=== PATIENT | female | born 1965 | race African-American/Black ===

== ENCOUNTER 2017-03-22 09:11 | Emergency (ER) | payer MEDICARE, OTHER ==
[2017-03-22 09:17] VITALS: BP 141/108; PULSE 99; RESP 20; TEMP 97.8
--- NOTE | 2017-03-22 09:29 | ED ---
General Adult HPI - General Chief complaint: Extremity Injury, Upper Stated complaint: LEFT SHOULDER PAIN Time Seen by Provider: 03/22/17 09:18 Source: patient, RN notes reviewed Mode of arrival: ambulatory Limitations: no limitations - History of Present Illness Initial comments: Patient is a 51 year old female who presents to the ER today with chief complaint of injury to the left shoulder after a trip and fall that occurred just prior to arrival. Patient does admit to pain locally to the left shoulder that is worse with movements. Denies any head injury or loss conscious. Patient denies any other injury or complaint at this time. Patient denies any recent fever, chills, shortness of breath, chest pain, back pain, abdominal pain , nausea or vomiting, numbness or tingling, dysuria or hematuria, constipation or diarrhea, headaches or visual changes, or any other complaints. - Related Data Previous Rx's Medication Instructions Recorded Ibuprofen [Motrin] 600 mg PO Q6HR PRN #30 day 03/22/17 Allergies Allergy/AdvReac Type Severity Reaction Status Date / Time No Known Allergies Allergy Verified 03/22/17 09:17 Review of Systems ROS Statement: Those systems with pertinent positive or pertinent negative responses have been documented in the HPI. ROS Other: All systems not noted in ROS Statement are negative. Past Medical History Past Medical History: No Reported History History of Any Multi-Drug Resistant Organisms: None Reported Past Surgical History: No Surgical Hx Reported Past Psychological History: Anxiety, Depression Smoking Status: Current every day smoker Past Alcohol Use History: Occasional Past Drug Use History: None Reported General Exam - General Exam Comments Initial Comments: General: The patient is awake and alert, in no distress, and does not appear acutely ill. Neck: The neck is supple, there is no tenderness or JVD. Cardiovascular: There is a regular rate and rhythm. No murmur, rub or gallop is appreciated. Respiratory: Lungs are clear to auscultation, respirations are non-labored, breath sounds are equal. No wheezes, stridor, rales, or rhonchi. Musculoskeletal: Patient does have normal appearance of the left shoulder obvious deformity. She shows limited range of motion with extension and abduction at the left shoulder. Able to fully move left elbow and wrist. No tenderness to cervical spine. No step-offs deformities. She does have tenderness over the superior and anterior aspects of the left shoulder on palpation. No other bony tenderness. Pulses are equal bilaterally 2+. Sensations are intact. Neurological: A&O x 3. CN II-XII intact, There are no obvious motor or sensory deficits. Coordination appears grossly intact. Speech is normal. Skin: Skin is warm and dry and no rashes or lesions are noted. Psychiatric: Normal mood and affect. Limitations: no limitations Course Vital Signs 03/22/17 09:13 Temperature 97.8 F Pulse Rate 99 Respiratory 20 Rate Blood Pressure 141/108 O2 Sat by Pulse 99 Oximetry Medical Decision Making - Medical Decision Making X-ray reviewed is negative for any acute fracture dislocation. Results were discussed with patient. She is resting comfortably in the stretcher. Will be started on anti-inflammatories. Advised to follow-up with orthopedics over the next week if symptoms persist for further evaluation. Disposition Clinical Impression: Shoulder contusion Disposition: HOME SELF-CARE Condition: Good Instructions: Shoulder Sprain (ED) Additional Instructions: Please use ice to the affected area at least 4 times a day for 20 minutes at a time. Please use ibuprofen for pain as prescribed. Please follow-up with orthopedics over the next 7/10 days if symptoms persist. Please return to emergency room for any other concerns. Prescriptions: Ibuprofen [Motrin] 600 mg PO Q6HR PRN #30 day PRN Reason: Pain Referrals: Basia Cárdenas MD [Primary Care Provider] - 1-2 days Carmelo Damon MD [STAFF PHYSICIAN] - 1-2 days Time of Disposition: 10:18
--- NOTE | 2017-03-22 09:59 | XR ---
Left shoulder HISTORY: Pain 3 views of the left shoulder Bone mineralization, joint spaces and alignment are maintained. Left lung apex as visualized is sanjay l. IMPRESSION: No significant abnormalities evident.
[2017-03-22] MEDS ORDERED: IBUPROFEN 600 MG STARTER PACK 4 TAB BTL PO STA (10:19)
== END 2017-03-22 10:28 | disposition home or self-care (01) ==
LOC: EC 09:11
DX: S40.012A Contusion of left shoulder, initial encounter (principal); F17.200 Nicotine dependence, unspecified, uncomplicated; W01.0XXA Fall on same level from slipping, tripping and stumbling without subsequent striking against object, initial encounter
CPT/HCPCS: 99283

== ENCOUNTER 2018-09-12 01:30 | Emergency (ER) | payer MEDICARE, OTHER ==
[2018-09-12] MEDS ORDERED: KETOROLAC 30 MG/ML 1 ML VIAL IM STA (04:06)
[2018-09-12] MEDS ORDERED: CYCLOBENZAPRINE 10MG STARTER 3 TAB BTL PO STA (04:07)
--- NOTE | 2018-09-12 04:08 | ED ---
Recheck HPI - General Chief Complaint: Recheck/Abnormal Lab/Rx Stated Complaint: Needs pain meds Time Seen by Provider: 09/12/18 03:24 Source: patient, RN notes reviewed, old records reviewed Mode of arrival: ambulatory Limitations: no limitations - History of Present Illness Initial Comments: 53 year old female, recently DC from shelter. Patient states she has diffuse joint aches, and motrin will not help with her pain.She requests pain medications. Patient has no fever, or chills. She has no other symptoms. She states that she has a history of arthritis. - Related Data Previous Rx's Medication Instructions Recorded Cyclobenzaprine [Flexeril] 10 mg PO TID #12 tab 09/12/18 Ibuprofen 600 mg PO TID #30 tablet 09/12/18 Allergies Allergy/AdvReac Type Severity Reaction Status Date / Time No Known Allergies Allergy Verified 09/12/18 01:40 Review of Systems ROS Statement: Those systems with pertinent positive or pertinent negative responses have been documented in the HPI. ROS Other: All systems not noted in ROS Statement are negative. Past Medical History Past Medical History: No Reported History History of Any Multi-Drug Resistant Organisms: None Reported Past Surgical History: No Surgical Hx Reported Past Psychological History: Anxiety, Depression Smoking Status: Current every day smoker Past Alcohol Use History: Occasional Past Drug Use History: None Reported General Exam - General Exam Comments Initial Comments: 53 year old female, no distress. Limitations: no limitations General appearance: alert, in no apparent distress Head exam: Present: atraumatic, normocephalic, normal inspection Eye exam: Present: normal appearance, PERRL, EOMI. Absent: scleral icterus, conjunctival injection, periorbital swelling ENT exam: Present: normal exam, mucous membranes moist Neck exam: Present: normal inspection. Absent: tenderness, meningismus, lymphadenopathy Respiratory exam: Present: normal lung sounds bilaterally. Absent: respiratory distress, wheezes, rales, rhonchi, stridor Cardiovascular Exam: Present: regular rate, normal rhythm, normal heart sounds. Absent: systolic murmur, diastolic murmur, rubs, gallop, clicks GI/Abdominal exam: Present: soft, normal bowel sounds. Absent: distended, tenderness, guarding, rebound, rigid Neurological exam: Present: alert, oriented X3, CN II-XII intact Psychiatric exam: Present: normal affect, normal mood Skin exam: Present: warm, dry, intact, normal color. Absent: rash Course Vital Signs 09/12/18 09/12/18 01:36 04:34 Temperature 97.8 F 98.2 F Pulse Rate 92 68 Respiratory 20 18 Rate Blood Pressure 161/90 143/78 O2 Sat by Pulse 100 98 Oximetry Medical Decision Making - Medical Decision Making 53 year old female presents today with CC of joint pain. Patient has full ROM of extremities. Patient has symptoms after being DC from shelter last week, and states that being shelter was hard on her body. She was given IM toradol. Patient will be discharged with close follow up from PCP. Disposition Clinical Impression: Joint pain Disposition: HOME SELF-CARE Condition: Good Instructions (If sedation given, give patient instructions): Musculoskeletal Pain (ED) Additional Instructions: Follow Up with her primary care physician. Take anti-inflammatory medicine as prescribed. Return to emergency department if any alarming signs or symptoms occur. Prescriptions: Cyclobenzaprine [Flexeril] 10 mg PO TID #12 tab Ibuprofen 600 mg PO TID #30 tablet Is patient prescribed a controlled substance at d/c from ED?: No Referrals: Basia Cárdenas MD [Primary Care Provider] - 1-2 days Time of Disposition: 04:06
[2018-09-12 04:36] VITALS: BP 143/78; PULSE 68; RESP 18; TEMP 98.2
== END 2018-09-12 04:35 | disposition home or self-care (01) ==
LOC: EC 01:30
DX: M25.50 Pain in unspecified joint (principal); F17.200 Nicotine dependence, unspecified, uncomplicated
CPT/HCPCS: 99282; 96372; J1885

== ENCOUNTER 2018-12-23 16:25 | Emergency (ER) | payer MEDICARE, OTHER ==
--- NOTE | 2018-12-23 18:07 | ED ---
General Adult HPI - General Chief complaint: Psychiatric Symptoms Stated complaint: EPS eval Time Seen by Provider: 12/23/18 16:42 Source: patient, RN notes reviewed Mode of arrival: ambulatory Limitations: no limitations - History of Present Illness Initial comments: Patient is a pleasant 53-year-old female presenting to the emergency Department with depression. Symptoms have been occurring over the past week. Patient is tearful. Patient denies suicidal ideation and requests discharge. Patient states she only told the nurse that she had suicidal thoughts in order to be able to get in to the emergency department. Patient denies homicidal thoughts. No hallucinations. Patient states she does drink heavier than normal person however does not drink daily. Patient denies street drug use. No history of previous suicide attempt. - Related Data Home Medications Medication Instructions Recorded Confirmed Benztropine Mesylate [Cogentin] 2 mg PO BID 12/23/18 12/23/18 Multivitamins, Thera [Multivitamin 1 tab PO DAILY 12/23/18 12/23/18 (formulary)] Paliperidone IM [Invega Sustenna] 234 mg IM Q28D 12/23/18 12/23/18 Allergies Allergy/AdvReac Type Severity Reaction Status Date / Time No Known Allergies Allergy Verified 12/23/18 16:58 Review of Systems ROS Statement: Those systems with pertinent positive or pertinent negative responses have been documented in the HPI. ROS Other: All systems not noted in ROS Statement are negative. Constitutional: Denies: fever Eyes: Denies: eye pain ENT: Denies: ear pain Respiratory: Denies: cough Cardiovascular: Denies: chest pain Endocrine: Denies: fatigue Gastrointestinal: Denies: abdominal pain Genitourinary: Denies: dysuria Musculoskeletal: Denies: back pain Skin: Denies: rash Psychiatric: Reports: depression. Denies: auditory hallucinations, visual hallucinations, homicidal thoughts Past Medical History Past Medical History: No Reported History History of Any Multi-Drug Resistant Organisms: None Reported Past Surgical History: No Surgical Hx Reported Past Psychological History: Anxiety, Depression Smoking Status: Current every day smoker Past Alcohol Use History: Occasional Past Drug Use History: None Reported General Exam Limitations: no limitations General appearance: alert, in no apparent distress Head exam: Present: atraumatic Eye exam: Present: normal appearance Neck exam: Present: normal inspection Respiratory exam: Present: normal lung sounds bilaterally Cardiovascular Exam: Present: regular rate, normal rhythm GI/Abdominal exam: Present: soft. Absent: tenderness Extremities exam: Present: normal inspection Neurological exam: Present: alert Psychiatric exam: Present: normal affect, normal mood Skin exam: Present: normal color Course Vital Signs 12/23/18 12/23/18 16:39 19:00 Temperature 98.5 F Pulse Rate 112 H 98 Respiratory 18 20 Rate Blood Pressure 133/79 128/56 O2 Sat by Pulse 98 99 Oximetry Medical Decision Making - Medical Decision Making Patient was seen by mental health services who recommends discharge. Follow-up appointment was set up with [facility]. Disposition Clinical Impression: Depression Disposition: HOME SELF-CARE Condition: Stable Instructions (If sedation given, give patient instructions): Depression (ED) Additional Instructions: Please follow-up with primary care physician in the next day or 2 for recheck. Please also follow-up with [facility] as directed. Return for thoughts of self-harm, worsening symptoms or other concerns. Is patient prescribed a controlled substance at d/c from ED?: No Referrals: Basia Cárdenas MD [Primary Care Provider] - 1-2 days Time of Disposition: 19:44
[2018-12-23 19:43] LABS: Amphetamine Screen,Urine Not Detected (NotDetected); Barbiturate Screen,Urine Not Detected (NotDetected); Benzodiazepines Screen,Urine Not Detected (NotDetected); Cocaine Screen,Urine Detected (NotDetected); Methadone Screen, Urine Not Detected (NotDetected); Opiate Screen,Urine Not Detected (NotDetected); Oxycodone Screen, Urine Not Detected (NotDetected); Phencyclidine Screen,Urine Not Detected (NotDetected); Tricyclic Antidepressant,Urine Not Detected (NotDetected); Urn Cannabinoid Scrn Not Detected (NotDetected)
[2018-12-23 20:15] VITALS: BP 131/65; PULSE 73; RESP 18; TEMP 98.3
== END 2018-12-23 20:10 | disposition home or self-care (01) ==
LOC: EC 16:25
DX: F32.9 Major depressive disorder, single episode, unspecified (principal); F41.9 Anxiety disorder, unspecified; F17.200 Nicotine dependence, unspecified, uncomplicated; Z79.899 Other long term (current) drug therapy
CPT/HCPCS: 80306; 82075; 99284

== ENCOUNTER 2019-01-16 21:22 | Emergency (ER) | payer MEDICARE, OTHER ==
[2019-01-16 21:25] VITALS: TEMP 98.6
[2019-01-16] MEDS ORDERED: SODIUM CHLORIDE 0.9% 500 ML 500 ML IV STA (21:30)
[2019-01-16] MEDS ORDERED: HYDROmorphone 0.5 MG/0.5 ML SYRINGE IVP STA (21:30)
[2019-01-16] MEDS ORDERED: ONDANSETRON 4 MG/2 ML VIAL IVP STA (21:30)
[2019-01-16] MEDS ORDERED: SODIUM CHLORIDE 0.9% 1,000 ML IV STA (21:30)
--- NOTE | 2019-01-16 21:35 | ED ---
Abdominal Pain HPI - General Chief Complaint: Abdominal Pain Stated Complaint: Side pain Time Seen by Provider: 01/16/19 21:26 Source: patient, family, RN notes reviewed Mode of arrival: ambulatory Limitations: no limitations - History of Present Illness Initial Comments: 53-year-old female presents emergency Department chief complaint of right-sided abdominal pain. Patient states started yesterday. Patient states that nothing makes the pain feel better or worse at this time. Patient states she's had no prior abdominal surgeries. Denies any dysuria, hematuria, urinary frequency, diarrhea constipation. Patient had no nausea vomiting. Patient denies any current chest pain or shortness of breath. She states it is worse when you press on her abdomen. Patient is not taking any medications currently and denies taking anything for this pain. - Related Data Home Medications Medication Instructions Recorded Confirmed Benztropine Mesylate [Cogentin] 2 mg PO BID 12/23/18 12/23/18 Multivitamins, Thera [Multivitamin 1 tab PO DAILY 12/23/18 12/23/18 (formulary)] Paliperidone IM [Invega Sustenna] 234 mg IM Q28D 12/23/18 12/23/18 Previous Rx's Medication Instructions Recorded Cephalexin [Keflex] 500 mg PO Q6HR #28 cap 01/16/19 Allergies Allergy/AdvReac Type Severity Reaction Status Date / Time No Known Allergies Allergy Verified 01/16/19 21:25 Review of Systems ROS Statement: Those systems with pertinent positive or pertinent negative responses have been documented in the HPI. ROS Other: All systems not noted in ROS Statement are negative. Past Medical History Past Medical History: No Reported History History of Any Multi-Drug Resistant Organisms: None Reported Past Surgical History: No Surgical Hx Reported Past Psychological History: Anxiety, Depression Smoking Status: Current every day smoker Past Alcohol Use History: Occasional Past Drug Use History: None Reported General Exam Limitations: no limitations General appearance: alert, in no apparent distress Head exam: Present: atraumatic, normocephalic, normal inspection Eye exam: Present: normal appearance, PERRL, EOMI. Absent: scleral icterus, conjunctival injection, periorbital swelling ENT exam: Present: normal exam, mucous membranes moist, TM's normal bilaterally Neck exam: Present: normal inspection. Absent: tenderness, meningismus, lymphadenopathy Respiratory exam: Present: normal lung sounds bilaterally. Absent: respiratory distress, wheezes, rales, rhonchi, stridor Cardiovascular Exam: Present: normal rhythm, tachycardia, normal heart sounds. Absent: systolic murmur, diastolic murmur, rubs, gallop, clicks GI/Abdominal exam: Present: soft, tenderness (Moderate right upper quadrant tenderness with diffuse mild), normal bowel sounds. Absent: distended, guarding, rebound, rigid Back exam: Absent: CVA tenderness (R), CVA tenderness (L) Skin exam: Present: warm, dry, intact, normal color. Absent: rash Course Vital Signs 01/16/19 21:23 Temperature 98.6 F Pulse Rate 115 H Respiratory 20 Rate Blood Pressure 143/93 O2 Sat by Pulse 97 Oximetry Medical Decision Making - Medical Decision Making 53-year-old female presented for abdominal pain and right flank pain. Patient had labs urinalysis and CT CT is any evidence of obstructive stone or signs of infection this time. Patient does have urinary tract infection will be given Rocephin discharged on antibiotics. Return parameters were discussed. Patient agrees to plan. - Lab Data Result diagrams: 01/16/19 21:42 01/16/19 21:42 Lab Results 01/16/19 01/16/19 01/16/19 Range/Units 21:42 21:42 21:42 WBC 12.7 H (3.8-10.6) k/uL RBC 4.83 (3.80-5.40) m/uL Hgb 14.2 (11.4-16.0) gm/dL Hct 42.7 (34.0-46.0) % MCV 88.3 (80.0-100.0) fL MCH 29.4 (25.0-35.0) pg MCHC 33.2 (31.0-37.0) g/dL RDW 14.3 (11.5-15.5) % Plt Count 208 (150-450) k/uL Neutrophils % 80 % Lymphocytes % 14 % Monocytes % 4 % Eosinophils % 1 % Basophils % 0 % Neutrophils # 10.2 H (1.3-7.7) k/uL Lymphocytes # 1.8 (1.0-4.8) k/uL Monocytes # 0.5 (0-1.0) k/uL Eosinophils # 0.1 (0-0.7) k/uL Basophils # 0.0 (0-0.2) k/uL Sodium 139 (137-145) mmol/L Potassium 4.0 (3.5-5.1) mmol/L Chloride 103 (98-107) mmol/L Carbon Dioxide 26 (22-30) mmol/L Anion Gap 10 mmol/L BUN 10 (7-17) mg/dL Creatinine 0.77 (0.52-1.04) mg/dL Est GFR (CKD-EPI)AfAm >90 (>60 ml/min/1.73 sqM) Est GFR (CKD-EPI)NonAf 88 (>60 ml/min/1.73 sqM) Glucose 97 (74-99) mg/dL Plasma Lactic Acid Kendall 1.2 (0.7-2.0) mmol/L Calcium 9.4 (8.4-10.2) mg/dL Total Bilirubin 0.5 (0.2-1.3) mg/dL AST 18 (14-36) U/L ALT 9 (9-52) U/L Alkaline Phosphatase 73 (38-126) U/L Total Protein 6.9 (6.3-8.2) g/dL Albumin 3.9 (3.5-5.0) g/dL Amylase 31 (30-110) U/L Lipase 29 (23-300) U/L Urine Color Urine Appearance (Clear) Urine pH (5.0-8.0) Ur Specific [place] (1.001-1.035) Urine Protein (Negative) Urine Glucose (UA) (Negative) Urine Ketones (Negative) Urine Blood (Negative) Urine Nitrite (Negative) Urine Bilirubin (Negative) Urine Urobilinogen (<2.0) mg/dL Ur Leukocyte Esterase (Negative) Urine RBC (0-5) /hpf Urine WBC (0-5) /hpf Ur Squamous Epith Cells (0-4) /hpf Urine Bacteria (None) /hpf Urine Mucus (None) /hpf Urine Yeast (Budding) (None) /hpf 01/16/19 Range/Units 22:20 WBC (3.8-10.6) k/uL RBC (3.80-5.40) m/uL Hgb (11.4-16.0) gm/dL Hct (34.0-46.0) % MCV (80.0-100.0) fL MCH (25.0-35.0) pg MCHC (31.0-37.0) g/dL RDW (11.5-15.5) % Plt Count (150-450) k/uL Neutrophils % % Lymphocytes % % Monocytes % % Eosinophils % % Basophils % % Neutrophils # (1.3-7.7) k/uL Lymphocytes # (1.0-4.8) k/uL Monocytes # (0-1.0) k/uL Eosinophils # (0-0.7) k/uL Basophils # (0-0.2) k/uL Sodium (137-145) mmol/L Potassium (3.5-5.1) mmol/L Chloride (98-107) mmol/L Carbon Dioxide (22-30) mmol/L Anion Gap mmol/L BUN (7-17) mg/dL Creatinine (0.52-1.04) mg/dL Est GFR (CKD-EPI)AfAm (>60 ml/min/1.73 sqM) Est GFR (CKD-EPI)NonAf (>60 ml/min/1.73 sqM) Glucose (74-99) mg/dL Plasma Lactic Acid Kendall (0.7-2.0) mmol/L Calcium (8.4-10.2) mg/dL Total Bilirubin (0.2-1.3) mg/dL AST (14-36) U/L ALT (9-52) U/L Alkaline Phosphatase (38-126) U/L Total Protein (6.3-8.2) g/dL Albumin (3.5-5.0) g/dL Amylase (30-110) U/L Lipase (23-300) U/L Urine Color Yellow Urine Appearance Cloudy H (Clear) Urine pH 6.0 (5.0-8.0) Ur Specific [place] >1.050 H (1.001-1.035) Urine Protein Trace H (Negative) Urine Glucose (UA) Negative (Negative) Urine Ketones 2+ H (Negative) Urine Blood Small H (Negative) Urine Nitrite Negative (Negative) Urine Bilirubin Negative (Negative) Urine Urobilinogen 2.0 (<2.0) mg/dL Ur Leukocyte Esterase Large H (Negative) Urine RBC 10 H (0-5) /hpf Urine WBC 18 H (0-5) /hpf Ur Squamous Epith Cells 8 H (0-4) /hpf Urine Bacteria Rare H (None) /hpf Urine Mucus Rare H (None) /hpf Urine Yeast (Budding) Moderate H (None) /hpf Disposition Clinical Impression: Abdominal pain, UTI (urinary tract infection) Disposition: HOME SELF-CARE Condition: Stable Instructions (If sedation given, give patient instructions): Abdominal Pain (ED) Additional Instructions: Please return to the Emergency Department if symptoms worsen or any other concerns. Prescriptions: Cephalexin [Keflex] 500 mg PO Q6HR #28 cap Is patient prescribed a controlled substance at d/c from ED?: No Referrals: Basia Cárdenas MD [Primary Care Provider] - 1-2 days Time of Disposition: 23:02
[2019-01-16 21:54] LABS: Basophils % (A) 0 %; Eosinophils # (A) 0.1 k/uL (0-0.7); Eosinophils % (A) 1 %; HCT 42.7 % (34.0-46.0); HGB 14.2 gm/dL (11.4-16.0); Lymphocytes # (A) 1.8 k/uL (1.0-4.8); Lymphocytes % (A) 14 %; MCH 29.4 pg (25.0-35.0); MCHC 33.2 g/dL (31.0-37.0); MCV 88.3 fL (80.0-100.0); Mean Platelet Volume 8.4; Monocytes # (A) 0.5 k/uL (0-1.0); Monocytes % (A) 4 %; Neutrophils # (A) 10.2 k/uL (1.3-7.7); Neutrophils % (A) 80 %; Platelet Count 208 k/uL (150-450); RBC 4.83 m/uL (3.80-5.40); RDW 14.3 % (11.5-15.5); WBC 12.7 k/uL (3.8-10.6)
[2019-01-16 22:05] LABS: ALT 9 U/L (9-52); AST 18 U/L (14-36); Albumin 3.9 g/dL (3.5-5.0); Alkaline Phosphatase 73 U/L (38-126); Amylase 31 U/L (30-110); Blood Urea Nitrogen 10 mg/dL (7-17); Calcium 9.4 mg/dL (8.4-10.2); Carbon Dioxide 26 mmol/L (22-30); Chloride 103 mmol/L (98-107); Glucose 97 mg/dL (74-99); Lipase 29 U/L (23-300); Total Bilirubin 0.5 mg/dL (0.2-1.3); Total Protein 6.9 g/dL (6.3-8.2)
[2019-01-16 22:13] LABS: Anion Gap 10 mmol/L; Sodium 139 mmol/L (137-145)
[2019-01-16 22:44] LABS: Appearance,Urine Cloudy (Clear); Bacteria,Urine Rare /hpf; Bilirubin,Urine Negative (Negative); Blood,Urine Small (Negative); Budding Yeast,Urine Moderate /hpf; Color,Urine Yellow; Glucose,Urine (UA) Negative (Negative); Ketones,Urine 2+ (Negative); Leukocyte Esterase,Urine Large (Negative); Mucus,Urine Rare /hpf; Nitrite,Urine Negative (Negative); Protein,Urine Trace (Negative); RBC,Urine 10 /hpf (0-5); Squamous Epithelial Cell,Urine 8 /hpf (0-4)
[2019-01-16 22:45] LABS: Specific Gravity,Urine >1.050 (1.001-1.035)
--- NOTE | 2019-01-16 22:51 | CT ---
EXAM: CT Abdomen and Pelvis With Intravenous Contrast CLINICAL HISTORY: ITS.REASON CT Reason: abdominal pain TECHNIQUE: Axial computed tomography images of the abdomen and pelvis with intravenous contrast. CTDI is 16.5 mGy and DLP is 659.90 mGy-cm. This CT exam was performed using one or more of the following dose reduction techniques: automated exposure control, adjustment of the mA and/or kV according to patient size, and/or use of iterative reconstruction technique. COMPARISON: No relevant prior studies available. FINDINGS: Lung bases: Subsegmental atelectasis at the posterior aspect of the right lower lobe. ABDOMEN: Liver: Unremarkable. No mass. Gallbladder and bile ducts: See below. Pancreas: Pancreas and gallbladder are unremarkable. No ductal dilation. Spleen: Unremarkable. No splenomegaly. Adrenals: Unremarkable. No mass. Kidneys and ureters: Right and left renal calyceal calculi at approximately the interpolar level, larger on the left side where the calculus measures 6 mm. No obstructive uropathy. Stomach and bowel: Unremarkable. No obstruction. No mucosal thickening. PELVIS: Appendix: No findings to suggest acute appendicitis. Bladder: Unremarkable. No mass. Reproductive: Unremarkable as visualized. ABDOMEN and PELVIS: Intraperitoneal space: No free air or free fluid. No adnexal masses. Bones/joints: No acute fracture. No dislocation. Soft tissues: Unremarkable. Vasculature: Unremarkable. No abdominal aortic aneurysm. Lymph nodes: Unremarkable. No enlarged lymph nodes. IMPRESSION: Nonobstructing bilateral renal calyceal calculi. No other acute or inflammatory disease.
[2019-01-16] MEDS ORDERED: cefTRIAXone IN SWFI 1,000 MG/10 ML SYRINGE IVP STA (22:59)
[2019-01-16] MEDS ORDERED: ACET/COD 300 MG/30 MG STARTER PACK 6 TAB BTL PO STA (23:00)
[2019-01-16 23:19] VITALS: BP 133/86; PULSE 100; RESP 18
== END 2019-01-16 23:19 | disposition home or self-care (01) ==
LOC: EC 21:22
DX: N39.0 Urinary tract infection, site not specified (principal); F17.200 Nicotine dependence, unspecified, uncomplicated; Z79.899 Other long term (current) drug therapy
CPT/HCPCS: 99284; 96374; 96375 ×2; 96361; 36415; 80053; 82150; 83605; 83690; 85025; 81001; 87086; 74177; J2405; J0696; J1170; Q9967

== ENCOUNTER → 2020-06-06 | Day surgery (SDC) | payer MEDICARE, OTHER ==
[2020-06-01 15:33] VITALS: BMI 32.5
[~2020-06-06] MED LIST: LACTATED RINGERS 1,000 ML IV SCH; LIDOCAINE 1% (10MG/ML) FOR IV START INTRADERMA PRN; MIDAZOLAM 2 MG/2 ML VIAL IV PRN
== END ==
LOC: ORWHC2ENDO 08:04
PROVIDERS: ATTEND Surgery
DX: Z53.9 Procedure and treatment not carried out, unspecified reason (principal)

== ENCOUNTER → 2020-06-20 | Outpatient (CLI) | payer MEDICARE, OTHER ==
--- NOTE | 2020-06-21 11:58 | MM ---
Reason for exam: screening (asymptomatic). Last mammogram was performed 4 years ago. History: Family history of breast cancer in sister at age 50 and breast cancer in cousin at age 55. Excisional biopsy of the left breast. Physical Findings: A clinical breast exam by your physician is recommended on an annual basis and results should be correlated with mammographic findings. MG 3D Screening Mammo W/Cad Bilateral CC and MLO view(s) were taken. Prior study comparison: June 12, 2016, bilateral MG screening mammo w CAD. July 06, 2015, bilateral MG screening mammo w CAD. The breast tissue is heterogeneously dense. This may lower the sensitivity of mammography. There is chronic nodularity in the left breast. There is no discrete abnormality. ASSESSMENT: Negative, BI-RAD 1 RECOMMENDATION: Routine screening mammogram of both breasts in 1 year.
== END | disposition home or self-care (01) ==
LOC: RADMAMWWP 09:41
PROVIDERS: ATTEND Family Medicine
DX: Z12.31 Encounter for screening mammogram for malignant neoplasm of breast (principal)
CPT/HCPCS: 77063; 77067

== ENCOUNTER → 2020-08-08 | Day surgery (SDC) | payer MEDICARE, OTHER ==
[2020-08-07 12:45] VITALS: BMI 41.1
[~2020-08-08] MED LIST changes: +LACTATED RINGERS 1,000 ML IV ONE; -LACTATED RINGERS 1,000 ML IV SCH; -LIDOCAINE 1% (10MG/ML) FOR IV START INTRADERMA PRN; -MIDAZOLAM 2 MG/2 ML VIAL IV PRN; +ONDANSETRON 4 MG/2 ML VIAL IVP ONE; +ONDANSETRON 4 MG/2 ML VIAL ONE; +PROPOFOL 10 MG/ML 20 ML VIAL IV ONE
--- NOTE | 2020-08-08 08:28 | P.GSHP ---
History of Present Illness H&P Date: 08/08/20 Chief Complaint: Colon cancer screening 55-year-old female here today for evaluation of colon cancer screening. She has not had a colonoscopy previously. No bowel complaints. No family history of colon cancer. Past Medical History Past Medical History: Hyperlipidemia, Hypertension, Osteoarthritis (OA) History of Any Multi-Drug Resistant Organisms: None Reported Past Surgical History: Breast Surgery, Section Additional Past Surgical History / Comment(s): Lump exc Lt breast Past Anesthesia/Blood Transfusion Reactions: No Reported Reaction Smoking Status: Current every day smoker - Past Family History Mother Family Medical History: Cancer Additional Family Medical History / Comment(s): lung cancer Medications and Allergies Home Medications Medication Instructions Recorded Confirmed Type Atorvastatin [Lipitor] 10 mg PO HS 06/01/20 08/08/20 History Metoprolol Succinate [Toprol XL] 25 mg PO HS 06/01/20 08/08/20 History Allergies Allergy/AdvReac Type Severity Reaction Status Date / Time No Known Allergies Allergy Verified 08/08/20 08:04 Surgical - Exam Physical exam: General: Well-developed, well-nourished HEENT: Normocephalic, sclerae nonicteric Abdomen: Nontender, nondistended Extremities: No edema Neuro: Alert and oriented Assessment and Plan (1) Colon cancer screening Narrative/Plan: Will proceed with colonoscopy at this time Current Visit: Yes Status: Acute Code(s): Z12.11 - ENCOUNTER FOR SCREENING FOR MALIGNANT NEOPLASM OF COLON SNOMED Code(s): 810281880
--- NOTE | 2020-08-08 08:45 | P.PCN ---
Date of Procedure: 08/08/20 Procedure(s) Performed: PREOPERATIVE DIAGNOSIS: Colon cancer screening POSTOPERATIVE DIAGNOSIS: Tortuous colon, multiple rectal polyps PROCEDURE: Colonoscopy with biopsy ANESTHESIA: MAC SURGEON: Richmond Vazquez M.D. SPECIMENS: Of polyps ENDOSCOPIC PROCEDURE: The patient was placed on the endoscopy table in the left decubitus position. The Olympus colonoscope was inserted into the anus and passed under direct visualization to the mid transverse colon. We were unable advance further given distal tortuosity. Multiple attempts were made. The scope withdrawn. There were no abnormalities present within the transverse descending or sigmoid colon. In the rectum there were multiple small polyps that appeared likely hyperplastic. These were removed using the cold biopsy forceps. There was no visible diverticulosis. Digital rectal examination was normal. The patient was taken to the recovery room in stable condition per anesthesia guidelines. RECOMMENDATIONS: Await biopsy results. Will recommend follow-up barium enema 68 weeks from now.
[2020-08-08 08:52] VITALS: RESP 16
[2020-08-08 09:04] VITALS: BP 111/70; PULSE 80
== END ==
LOC: ORWHC2ENDO 07:42
PROVIDERS: ATTEND Surgery
DX: Z12.11 Encounter for screening for malignant neoplasm of colon (principal); K62.1 Rectal polyp; Q43.8 Other specified congenital malformations of intestine; E78.5 Hyperlipidemia, unspecified; I10 Essential (primary) hypertension; M19.90 Unspecified osteoarthritis, unspecified site; F17.210 Nicotine dependence, cigarettes, uncomplicated; F41.9 Anxiety disorder, unspecified; F32.9 Major depressive disorder, single episode, unspecified; Z98.890 Other specified postprocedural states; K00.0 Anodontia; Z98.891 History of uterine scar from previous surgery; Z80.1 Family history of malignant neoplasm of trachea, bronchus and lung; Z79.899 Other long term (current) drug therapy
CPT/HCPCS: 88305; 45380; J2405; J2704

== ENCOUNTER 2021-11-15 08:40 | Emergency (ER) | payer MEDICARE, OTHER ==
[2021-11-15 08:45] VITALS: RESP 18; TEMP 97.8
[2021-11-15] MEDS ORDERED: FLUORESCEIN STRIPS 1 MG STRIP BOTH EYES ONE (08:51)
[2021-11-15] MEDS ORDERED: PROPARACAINE 0.5% OPHTH DROPS 15 ML BTL BOTH EYES STA (08:51)
--- NOTE | 2021-11-15 09:26 | ED ---
Eye Problem HPI - General Chief complaint: Eye Problems Stated complaint: Eye Injury Time Seen by Provider: 11/15/21 08:51 Source: patient, RN notes reviewed, old records reviewed Mode of arrival: ambulatory Limitations: no limitations - History of Present Illness Initial comments: Patient is a pleasant 56-year-old female who [facility] today for complaints of right eye pain, swelling and abrasion. She reports that on Friday when at work she was packing and lifted a piece of cardboard. Patient reports that she scratched and hit her right corner of her eye. Patient states that she has no visual changes. She reports over the past 2 days and slowly increased swelling. Denies purulent discharge from the eye. Patient does not wear contacts or glasses. - Related Data Home Medications Medication Instructions Recorded Confirmed Atorvastatin [Lipitor] 10 mg PO HS 06/01/20 08/08/20 Metoprolol Succinate [Toprol XL] 25 mg PO HS 06/01/20 08/08/20 Previous Rx's Medication Instructions Recorded Tobramycin 0.3% Ophth Soln [Tobrex 1 drop RIGHT EYE TID 7 Days #5 ml 11/15/21 0.3% Ophth Soln] Allergies Allergy/AdvReac Type Severity Reaction Status Date / Time No Known Allergies Allergy Verified 08/08/20 08:04 Review of Systems ROS Statement: Those systems with pertinent positive or pertinent negative responses have been documented in the HPI. ROS Other: All systems not noted in ROS Statement are negative. Past Medical History Past Medical History: Hyperlipidemia, Hypertension, Osteoarthritis (OA) History of Any Multi-Drug Resistant Organisms: None Reported Past Surgical History: Breast Surgery, Section Additional Past Surgical History / Comment(s): Lump exc Lt breast Past Anesthesia/Blood Transfusion Reactions: No Reported Reaction Past Psychological History: Anxiety, Depression Smoking Status: Current every day smoker Past Alcohol Use History: None Reported Past Drug Use History: None Reported - Past Family History Mother Family Medical History: Cancer Additional Family Medical History / Comment(s): lung cancer General Exam - General Exam Comments Initial Comments: Pleasant 56-year-old female. Alert and oriented. No distress. Limitations: no limitations General appearance: alert, in no apparent distress Head exam: Present: atraumatic, normocephalic, normal inspection Eye exam: Present: PERRL, EOMI, conjunctival injection, other (IOP 21 on L, 22 on R eye with tonopen. ). Absent: normal appearance (Patient has subcon junctival hemorrhage from 9 oclock to 12 oclock postiion of the sclera. Evidence of .5 cm linear corneal abrasion. ), scleral icterus, periorbital swelling ENT exam: Present: normal exam, mucous membranes moist Neck exam: Present: normal inspection. Absent: tenderness, meningismus, lymphadenopathy Respiratory exam: Present: normal lung sounds bilaterally. Absent: respiratory distress, wheezes, rales, rhonchi, stridor Cardiovascular Exam: Present: regular rate, normal rhythm, normal heart sounds. Absent: systolic murmur, diastolic murmur, rubs, gallop, clicks Psychiatric exam: Present: normal affect, normal mood Skin exam: Present: warm, dry, intact, normal color. Absent: rash Course Vital Signs 11/15/21 08:41 Temperature 97.8 F Pulse Rate 85 Respiratory 18 Rate Blood Pressure 134/82 O2 Sat by Pulse 98 Oximetry Medical Decision Making - Medical Decision Making 56-year-old female presents with right eye pain and irritation after scratching her eye with a piece of cardboard at work. Patient has evidence of a scleral hemorrhage with evidence of a 0.5 cm corneal abrasion at the same area. The swelling and abrasion are at the 9 o'clock position of the sclera, not overlying the pupil. Visual acuities intact. Intraocular pressures were 21 and to the left eye and 22 to the right iris presently. Patient otherwise has no other injury. Patient will be prescribed antibiotic eyedrops and advised follow up with ophthalmology if symptoms continue persist after 2-3 days. Advised if there is any visual disturbances to return to the ER promptly. Disposition Clinical Impression: Corneal abrasion, right, Scleral hemorrhage of right eye Disposition: HOME SELF-CARE Condition: Good Instructions (If sedation given, give patient instructions): Corneal Abrasion (ED) Additional Instructions: Apply ice/cool compress over the eye. Patient should use antibiotic drop as prescribed. Follow up with eye doctor if symptoms persist for another 3 days. Return to ER if visual changes, loss of vision occur. Prescriptions: Tobramycin 0.3% Ophth Soln [Tobrex 0.3% Ophth Soln] 1 drop RIGHT EYE TID 7 Days #5 ml Is patient prescribed a controlled substance at d/c from ED?: No Referrals: Basia Cárdenas MD [Primary Care Provider] - 1-2 days Jerome Ren MD [STAFF PHYSICIAN] - 1-2 days Time of Disposition: 09:23
[2021-11-15 09:49] VITALS: BP 133/84; PULSE 77
== END 2021-11-15 09:51 | disposition home or self-care (01) ==
LOC: EC 08:40
DX: S05.01XA Injury of conjunctiva and corneal abrasion without foreign body, right eye, initial encounter (principal); I10 Essential (primary) hypertension; E78.5 Hyperlipidemia, unspecified; M19.90 Unspecified osteoarthritis, unspecified site; F32.A Depression, unspecified; F41.9 Anxiety disorder, unspecified; F17.200 Nicotine dependence, unspecified, uncomplicated; Z79.899 Other long term (current) drug therapy; W22.8XXA Striking against or struck by other objects, initial encounter; Y99.0 Civilian activity done for income or pay
CPT/HCPCS: 99283

== ENCOUNTER 2021-12-21 17:12 | Emergency (ER) | payer MEDICARE, OTHER ==
[2021-12-21 17:25] VITALS: TEMP 98.6
[2021-12-21 20:53] VITALS: BP 168/83; PULSE 71; RESP 16
[2021-12-21] MEDS ORDERED: Acetaminophen-Codeine 300-30mg TAB PO STA (21:00)
[2021-12-21] MEDS ORDERED: IBUPROFEN 600 MG TAB PO STA (21:00)
[2021-12-21] MEDS ORDERED: ACET/COD 300 MG/30 MG STARTER PACK 6 TAB BTL PO STA (21:01)
[2021-12-21] MEDS ORDERED: IBUPROFEN 600 MG STARTER PACK 4 TAB BTL PO STA (21:01)
[2021-12-21] MEDS ORDERED: PENICILLIN VK 500MG STARTER 4 TAB BTL PO STA (21:01)
--- NOTE | 2021-12-21 21:05 | ED ---
ENT HPI - General Chief complaint: Dental/Oral Stated complaint: detal pain Time Seen by Provider: 12/21/21 20:54 Source: patient, RN notes reviewed Mode of arrival: ambulatory Limitations: no limitations - History of Present Illness Initial comments: This is a pleasant 56-year-old female who presents to the emergency department stating that she had a cap placed on upper left molar last week by her dentist. She states for the past 2 or 3 days she has had toothache to this general area. No drainage. No problems swallowing. No fever or chills. Patient states this is aching in nature. Patient has been taking [id number] anti-inflammatory medication with no relief. Patient has a follow-up dental appointment on Friday. No headache, no fever or chills, no changes in vision or hearing, no sore throat or difficulty with speech, no neck pain, no chest pain or shortness of breath, no abdominal pain, no nausea or vomiting, no changes in urination or bowel movements, no numbness or tingling, no extremity pain, no skin rashes or lesions. MD complaint: tooth pain - Related Data Home Medications Medication Instructions Recorded Confirmed Atorvastatin [Lipitor] 10 mg PO HS 06/01/20 08/08/20 Metoprolol Succinate [Toprol XL] 25 mg PO HS 06/01/20 08/08/20 Previous Rx's Medication Instructions Recorded Tobramycin 0.3% Ophth Soln [Tobrex 1 drop RIGHT EYE TID 7 Days #5 ml 11/15/21 0.3% Ophth Soln] Ibuprofen [Motrin] 600 mg PO Q8HR PRN #30 tab 12/21/21 Penicillin V Potassium [Pen Vee K] 500 mg PO QID #36 tablet 12/21/21 Allergies Allergy/AdvReac Type Severity Reaction Status Date / Time No Known Allergies Allergy Verified 12/21/21 17:24 Review of Systems ROS Statement: Those systems with pertinent positive or pertinent negative responses have been documented in the HPI. ROS Other: All systems not noted in ROS Statement are negative. Past Medical History Past Medical History: Hyperlipidemia, Hypertension, Osteoarthritis (OA) History of Any Multi-Drug Resistant Organisms: None Reported Past Surgical History: Breast Surgery, Section Additional Past Surgical History / Comment(s): Lump exc Lt breast Past Anesthesia/Blood Transfusion Reactions: No Reported Reaction Past Psychological History: Anxiety, Depression Smoking Status: Current every day smoker Past Alcohol Use History: None Reported Past Drug Use History: None Reported - Past Family History Mother Family Medical History: Cancer Additional Family Medical History / Comment(s): lung cancer General Exam - General Exam Comments Initial Comments: Distress due to dental pain. Does not appear to be ill or toxic. Vital signs reviewed. Cranial nerves II through XII grossly intact Limitations: no limitations General appearance: alert, in distress Head exam: Present: atraumatic, normocephalic, normal inspection Eye exam: Present: normal appearance, PERRL, EOMI. Absent: scleral icterus, conjunctival injection, periorbital swelling ENT exam: Present: normal exam, normal oropharynx, mucous membranes moist, TM's normal bilaterally, normal external ear exam. Absent: mucous membranes dry Expanded Ear exam: Present: normal external inspection Mouth exam: Present: tongue normal. Absent: drooling, trismus, muffled voice, tongue elevation, laceration Teeth exam: Present: other (Poor dentition noted, however no evidence of active infectious process.) Throat exam: normal inspection. negative: tonsillar erythema, tonsillomegaly, tonsillar exudate, R peritonsillar mass, L peritonsillar mass Neck exam: Present: normal inspection. Absent: tenderness, meningismus, lymphadenopathy Respiratory exam: Present: normal lung sounds bilaterally. Absent: respiratory distress, wheezes, rales, rhonchi, stridor Cardiovascular Exam: Present: regular rate, normal rhythm, normal heart sounds. Absent: systolic murmur, diastolic murmur, rubs, gallop, clicks GI/Abdominal exam: Present: soft, normal bowel sounds. Absent: distended, tenderness, guarding, rebound, rigid Extremities exam: Present: normal inspection, full ROM, normal capillary refill. Absent: tenderness, pedal edema, joint swelling, calf tenderness Back exam: Present: normal inspection Neurological exam: Present: alert, oriented X3, CN II-XII intact Psychiatric exam: Present: normal affect, normal mood Skin exam: Present: warm, dry, intact, normal color. Absent: rash Course Vital Signs 12/21/21 12/21/21 17:23 20:53 Temperature 98.6 F Pulse Rate 66 71 Respiratory 20 16 Rate Blood Pressure 169/91 168/83 O2 Sat by Pulse 100 100 Oximetry Medical Decision Making - Medical Decision Making Patient counseled on smoking cessation. Patient counseled on follow-up with a dentist. We will give the patient started pack of acetaminophen/codeine. We'll cover the Pen-Vee K in case this is early infection. Patient has an appointment on Friday. Told to keep this appointment without fail. Patient fully understands. Patient was told to return to the ER for any signs or symptoms worsen. Told to return immediately if any other problems arise. All questions answered. Treatment plan discussed. Patient in agreement Every effort has been made to ensure accuracy of this dictation. However, due to the limitations of electronic medical records and dictation devices, errors in charting still occur. Supervising physician is Dr. Merritt Disposition Clinical Impression: Toothache, Cigarette smoker Disposition: HOME SELF-CARE Instructions (If sedation given, give patient instructions): How to Stop Smoking (ED), Toothache (ED) Additional Instructions: Follow-up with your child's physician as directed. Bring your child back to the emergency department immediately if any symptoms worsen or new symptoms develop. Return if any other problems arise. Prescriptions: Ibuprofen [Motrin] 600 mg PO Q8HR PRN #30 tab PRN Reason: Pain Penicillin V Potassium [Pen Vee K] 500 mg PO QID #36 tablet Is patient prescribed a controlled substance at d/c from ED?: No Referrals: Basia Cárdenas MD [Primary Care Provider] - 1-2 days Time of Disposition: 21:04
== END 2021-12-21 21:20 | disposition home or self-care (01) ==
LOC: EC 17:12
DX: K08.89 Other specified disorders of teeth and supporting structures (principal); F17.210 Nicotine dependence, cigarettes, uncomplicated; E78.5 Hyperlipidemia, unspecified; I10 Essential (primary) hypertension; M19.90 Unspecified osteoarthritis, unspecified site; F41.9 Anxiety disorder, unspecified; F32.A Depression, unspecified
CPT/HCPCS: 99282

== ENCOUNTER → 2022-01-18 | Outpatient (CLI) | payer MEDICARE, OTHER ==
--- NOTE | 2022-01-22 08:24 | MM ---
Reason for Exam: Screening (asymptomatic). Last mammogram was performed 1 year(s) and 7 month(s) ago. Patient History: Menarche at age 15. First Full-Term at age 16. Postmenopausal. Excisional Biopsy on the Left side. Maternal cousin had breast cancer, age 55. Sister had breast cancer, age 50. Risk Values: Pilar 5 year model risk: 2.5%. NCI Lifetime model risk: 15.5%. Film Views: Bilateral CC views were taken. Bilateral MLO views were taken. Prior Study Comparison: 07/06/2015 Bilateral Screening Mammogram, [facility]. 06/12/2016 Bilateral Screening Mammogram, [facility]. 06/20/2020 Bilateral Screening Mammogram, [facility]. Tissue Density: The breast tissue is heterogeneously dense. This may lower the sensitivity of mammography. Findings: Analyzed By CAD. Stable chronic nodularity in the left breast. There is no suspicious group of microcalcifications or new suspicious mass in either breast. Overall Assessment: Benign, BI-RAD 2 Management: Screening Mammogram of both breasts in 1 year. A clinical breast exam by your physician is recommended on an annual basis and results should be correlated with mammographic findings. Electronically signed and approved by: Jerome Herman M.D.
== END | disposition home or self-care (01) ==
LOC: RADMAMWWP 16:36
PROVIDERS: ATTEND Family Medicine
DX: Z12.31 Encounter for screening mammogram for malignant neoplasm of breast (principal); Z78.0 Asymptomatic menopausal state; Z80.3 Family history of malignant neoplasm of breast
CPT/HCPCS: 77063; 77067

== ENCOUNTER 2022-06-04 06:04 | Emergency (ER) | payer MEDICARE, OTHER ==
[2022-06-04 06:10] VITALS: TEMP 98.2
--- NOTE | 2022-06-04 06:52 | ED ---
Overdose HPI - General Chief Complaint: Overdose Stated Complaint: Overdose Time Seen by Provider: 06/04/22 06:07 Source: patient, EMS, RN notes reviewed Mode of arrival: EMS Limitations: no limitations - History of Present Illness Initial Comments: This a 57-year-old female presents emergency from via EMS for overdose. Patient doesn't that she used heroin, has been drinking alcohol. Patient states she was not trying self-harm. Patient was found to be unresponsive seen always breathing. Patient was given 2 mg of intranasal Narcan. Patient responding. Patient has been "him, we can and orientated. Patient states her ribs are sore. There was reports that bystanders started CPR. There was no clear loss of pulse. Patient denies any other associated complaints. - Related Data Home Medications Medication Instructions Recorded Confirmed Atorvastatin [Lipitor] 10 mg PO HS 06/01/20 08/08/20 Metoprolol Succinate [Toprol XL] 25 mg PO HS 06/01/20 08/08/20 Previous Rx's Medication Instructions Recorded Tobramycin 0.3% Ophth Soln [Tobrex 1 drop RIGHT EYE TID 7 Days #5 ml 11/15/21 0.3% Ophth Soln] Ibuprofen [Motrin] 600 mg PO Q8HR PRN #30 tab 12/21/21 Penicillin V Potassium [Pen Vee K] 500 mg PO QID #36 tablet 12/21/21 Allergies Allergy/AdvReac Type Severity Reaction Status Date / Time No Known Allergies Allergy Verified 12/21/21 17:24 Review of Systems ROS Statement: Those systems with pertinent positive or pertinent negative responses have been documented in the HPI. ROS Other: All systems not noted in ROS Statement are negative. Past Medical History Past Medical History: Hyperlipidemia, Hypertension, Osteoarthritis (OA) History of Any Multi-Drug Resistant Organisms: None Reported Past Surgical History: Breast Surgery, Section Additional Past Surgical History / Comment(s): Lump exc Lt breast Past Anesthesia/Blood Transfusion Reactions: No Reported Reaction Past Psychological History: Anxiety, Depression Smoking Status: Current every day smoker Past Alcohol Use History: None Reported Past Drug Use History: None Reported - Past Family History Mother Family Medical History: Cancer Additional Family Medical History / Comment(s): lung cancer General Exam Limitations: no limitations General appearance: alert, in no apparent distress Head exam: Present: atraumatic, normocephalic, normal inspection Eye exam: Present: normal appearance, PERRL, EOMI. Absent: scleral icterus, conjunctival injection, periorbital swelling ENT exam: Present: normal exam, normal oropharynx, mucous membranes moist Neck exam: Present: normal inspection, full ROM. Absent: tenderness, meningismus, lymphadenopathy Respiratory exam: Present: normal lung sounds bilaterally, chest wall tenderness. Absent: respiratory distress, wheezes, rales, rhonchi, stridor Cardiovascular Exam: Present: regular rate, normal rhythm, normal heart sounds. Absent: systolic murmur, diastolic murmur, rubs, gallop, clicks GI/Abdominal exam: Present: soft, normal bowel sounds. Absent: distended, tenderness, guarding, rebound, rigid Course Vital Signs 06/04/22 06/04/22 06:08 06:10 Temperature 98.2 F Pulse Rate 96 Pulse Rate [ 88 Apical] Respiratory 12 Rate Blood Pressure 140/94 O2 Sat by Pulse 98 Oximetry Medical Decision Making - Medical Decision Making 57-year-old female presented after heroin overdose. Patient was given Narcan by EMS does not require any further Narcan patient's been awake alert and oriented 4. Patient will be discharged to stable family member here to pick her up. Disposition Clinical Impression: Heroin overdose Disposition: HOME SELF-CARE Condition: Stable Instructions (If sedation given, give patient instructions): Adult Overdose (ED) Additional Instructions: Please return to the Emergency Department if symptoms worsen or any other concerns. Is patient prescribed a controlled substance at d/c from ED?: No Referrals: None,Stated [Primary Care Provider] - 1-2 days Time of Disposition: 07:42
--- NOTE | 2022-06-04 07:27 | XR ---
EXAMINATION TYPE: XR chest 2V DATE OF EXAM: 06/04/2022 COMPARISON: 09/03/2013 INDICATION: Pain TECHNIQUE: Frontal and lateral views of the chest are obtained. FINDINGS: The heart size is normal. The pulmonary vasculature is normal. The lungs are clear. IMPRESSION: 1. No acute pulmonary process.
[2022-06-04 08:01] VITALS: BP 138/88; PULSE 92; RESP 16
== END 2022-06-04 07:50 | disposition home or self-care (01) ==
LOC: EC 06:04
DX: T40.1X1A Poisoning by heroin, accidental (unintentional), initial encounter (principal); E78.5 Hyperlipidemia, unspecified; I10 Essential (primary) hypertension; F17.200 Nicotine dependence, unspecified, uncomplicated; Z79.899 Other long term (current) drug therapy
CPT/HCPCS: 71046; 99284

== ENCOUNTER 2022-07-24 20:01 | Inpatient (IN) | payer MEDICARE, OTHER ==
[2022-07-24] MEDS ORDERED: ONDANSETRON 4 MG/2 ML VIAL IVP STA (20:13)
[2022-07-24] MEDS ORDERED: SODIUM CHLORIDE 0.9% 1,000 ML IV STA (20:13)
[2022-07-24] MEDS ORDERED: MORPHINE SULFATE 4 MG/ML SYRINGE IV STA (20:13)
--- NOTE | 2022-07-24 20:38 | XR ---
EXAMINATION TYPE: XR KUB DATE OF EXAM: 07/24/2022 8:32 PM INDICATION: Patient age:Female; 57 years old; Reason for study: abdominal pain; PHH. COMPARISON: None. TECHNIQUE: One radiographic view of the abdomen was obtained. FINDINGS: The bowel gas pattern is nonspecific without dilated loops of small or large bowel. There i s no evidence for organomegaly or pneumoperitoneum. The osseous structures are intact. Calcification s project over both kidneys and the left up to 8 mm and on the right up to 4 mm. A 6 mm calculus is s een in the expected location of the right ureteropelvic junction. Fecal material and gas are demonstr ated throughout the colon and rectum. IMPRESSION: Bilateral calculi project of the kidneys there is calcific density near the right ureteropelvic junct ion. Consider CT renal stone protocol for further evaluation.
--- NOTE | 2022-07-24 22:07 | CT ---
EXAMINATION TYPE: CT abdomen pelvis wo con CT DLP: 495.9 mGycm, Automated exposure control for dose reduction was used. DATE OF EXAM: 07/24/2022 9:52 PM COMPARISON: CT abdomen pelvis most recent from 01/16/2019 CLINICAL INDICATION:Female, 57 years old with history of abdominal and back pain, stone on xr; Back a nd abdomen pain. Stone seen on XR. TECHNIQUE: Axial CT of the abdomen and pelvis. Sagittal and coronal reformats were created on a [id number] workstation. Contrast used: None Oral contrast used: without Oral Contrast FINDINGS: LOWER CHEST: Unremarkable ABDOMEN LIVER: Unremarkable GALLBLADDER AND BILE DUCTS: Unremarkable. PANCREAS: Unremarkable. SPLEEN: Unremarkable. ADRENAL GLANDS: Unremarkable. KIDNEYS AND URETERS: Bilateral nonobstructing renal calculi 2 5 mm on the right and 5 mm on the left. Calcification near the distal right ureter may actually be within the right ovary. No evidence of hy dronephrosis bilaterally. PELVIS BLADDER: Unremarkable REPRODUCTIVE: Unremarkable. ABDOMEN & PELVIS STOMACH AND BOWEL: No evidence of bowel obstruction. Small hiatal hernia is present. The appendix is normal. Few scattered clonic diverticula present. Mild submucosal fat deposition seen within the cecu m. PERITONEUM: No evidence of pneumoperitoneum or free fluid. VASCULATURE: No evidence of aortic aneurysm. Mild atherosclerosis of the arterial vasculature. MUSCULOSKELETAL: No acute osseous abnormalities LYMPH NODES: No gross evidence for lymphadenopathy. SOFT TISSUE/ABDOMINAL WALL: Fat-containing umbilical hernia. Mild diastasis of the rectus abdominis. IMPRESSION: 1. Bilateral nonobstructing renal calculi. There is a calcification near the distal right ureter whi ch is suboptimally evaluated due to its close proximity to other structures. Correlate for right flan k pain. Calcification may be within the right ovary. 2. Calcific density projecting near the right renal sinus on prior radiograph is felt to represent t he tip of the right transverse process of L3.
[2022-07-24 22:19] LABS: Basophils % (A) 0 %; Eosinophils % (A) 0 %; HCT 31.8 % (34.0-46.0); HGB 10.3 gm/dL (11.4-16.0); Lymphocytes # (A) 0.6 k/uL (1.0-4.8); Lymphocytes % (A) 10 %; MCH 29.6 pg (25.0-35.0); MCHC 32.5 g/dL (31.0-37.0); MCV 91.2 fL (80.0-100.0); Mean Platelet Volume 9.4; Monocytes # (A) 0.3 k/uL (0-1.0); Monocytes % (A) 4 %; Neutrophils # (A) 4.9 k/uL (1.3-7.7); Neutrophils % (A) 85 %; Platelet Count 171 k/uL (150-450); RBC 3.49 m/uL (3.80-5.40); RDW 13.6 % (11.5-15.5); WBC 5.8 k/uL (3.8-10.6)
[2022-07-24 22:27] LABS: INR 1.5 (<1.2); Partial Thromboplastin Time 41.4 sec (22.0-30.0); Prothrombin Time 15.3 sec (9.0-12.0)
[2022-07-24 22:29] LABS: ALT 8 U/L (4-34); AST 12 U/L (14-36); African American GFR (CKD) >90 (>60 ml/min/1.73 sqM); Albumin 1.5 g/dL (3.5-5.0); Alcohol <10 mg/dL; Alkaline Phosphatase 32 U/L (38-126); Amylase <30 U/L (30-110); Anion Gap 1 mmol/L; Blood Urea Nitrogen 5 mg/dL (7-17); Carbon Dioxide 13 mmol/L (22-30); Chloride 128 mmol/L (98-107); Lipase 11 U/L (23-300); Non-African American GFR(CKD) >90 (>60 ml/min/1.73 sqM); Sodium 142 mmol/L (137-145); Total Bilirubin 0.2 mg/dL (0.2-1.3); Total Protein 3.1 g/dL (6.3-8.2)
[2022-07-24 22:36] LABS: Calcium 3.8 mg/dL (8.4-10.2); Glucose 46 mg/dL (74-99); Potassium 1.9 mmol/L (3.5-5.1)
[2022-07-24] MEDS ORDERED: DEXTROSE 50% SYRINGE 50 ML IVP STA (22:40)
[2022-07-24] MEDS ORDERED: Potassium Replacement Protocol 1 EACH MISC MISCELLANE PRN (22:41)
[2022-07-24] MEDS ORDERED: CALCIUM GLUCONATE IN NACL 2 GM in SALINE 1 100ML.BAG IVPB ONE (22:53)
[2022-07-24] MEDS: POTASSIUM CHLORIDE 20 MEQ in WATER FOR INJECTION 1 100ML.BAG IVPB SCH (23:05)
[2022-07-24] MEDS: POTASSIUM CHLORIDE ER 20 MEQ TAB.ER PO SCH (23:06)
[2022-07-24] MEDS ORDERED: METOCLOPRAMIDE 5 MG/ML 2 ML VIAL IVP STA (23:08)
[2022-07-24 23:33] LABS: VBG PH 7.36 (7.31-7.41)
[2022-07-24] MEDS ORDERED: NALOXONE 0.4 MG/ML 1 ML VIAL IV PRN (23:59)
--- NOTE | 2022-07-25 00:03 | ED ---
General Adult HPI - General Chief complaint: Abdominal Pain Stated complaint: VOMITING Time Seen by Provider: 07/24/22 20:09 Source: EMS Mode of arrival: EMS Limitations: no limitations - History of Present Illness Initial comments: Patient is a 57-year-old female presenting to the ER the EMS for nausea and vomiting. Patient is also complaining of upper abdominal pain. Patient is difficult to obtain history from, she keeps repeating that she is in pain and feels sick. Patient does have a history of heroine and alcohol use, was here recently for heroin overdose. She keeps requesting "something to help her sleep". She admits to headache and back pain. She admits to congestion. Denies cough, chest pain, difficulty breathing, diarrhea, fever, chills, palpitations, numbness, tingling, muscle cramps. - Related Data Previous Rx's Medication Instructions Recorded Pantoprazole [Protonix] 40 mg PO DAILY #30 tab 07/27/22 amLODIPine [Norvasc] 5 mg PO BID #60 tab 07/27/22 Allergies Allergy/AdvReac Type Severity Reaction Status Date / Time No Known Allergies Allergy Verified 07/25/22 08:08 Review of Systems ROS Statement: Those systems with pertinent positive or pertinent negative responses have been documented in the HPI. ROS Other: All systems not noted in ROS Statement are negative. Past Medical History Past Medical History: Hyperlipidemia, Hypertension, Osteoarthritis (OA) History of Any Multi-Drug Resistant Organisms: None Reported Past Surgical History: Breast Surgery, Section Additional Past Surgical History / Comment(s): Lump exc Lt breast Past Anesthesia/Blood Transfusion Reactions: No Reported Reaction Past Psychological History: Anxiety, Depression Smoking Status: Current every day smoker Past Alcohol Use History: None Reported Past Drug Use History: None Reported - Past Family History Mother Family Medical History: Cancer Additional Family Medical History / Comment(s): lung cancer General Exam Limitations: no limitations General appearance: alert, in distress (Patient is crying saying that she does not feel well) Head exam: Present: atraumatic, normocephalic, normal inspection Eye exam: Present: normal appearance Neck exam: Present: normal inspection, full ROM Respiratory exam: Present: normal lung sounds bilaterally. Absent: respiratory distress, wheezes, rales, rhonchi, stridor Cardiovascular Exam: Present: regular rate, normal rhythm, normal heart sounds. Absent: systolic murmur, diastolic murmur, rubs, gallop, clicks GI/Abdominal exam: Present: soft, tenderness. Absent: distended, guarding, rebound, rigid Neurological exam: Present: alert, altered, CN II-XII intact Psychiatric exam: Present: normal affect, normal mood Skin exam: Present: warm, dry, intact, normal color. Absent: rash Course Vital Signs 07/24/22 07/24/22 07/24/22 20:04 20:06 23:21 Temperature 98.9 F 98.8 F 99.1 F Pulse Rate 66 82 82 Respiratory 16 16 16 Rate Blood Pressure 170/89 170/89 O2 Sat by Pulse 100 100 100 Oximetry 07/24/22 07/25/22 23:36 01:01 Temperature 98.9 F Pulse Rate 78 74 Respiratory 16 16 Rate Blood Pressure 135/45 133/72 O2 Sat by Pulse 100 100 Oximetry EKG Findings - EKG Comments: EKG Findings:: Sinus rhythm with occasional supraventricular premature complexes. Rate of 74. IA interval 154. QRS 93. QT 479. QTc 506. No ST deviation. T wave inversion in leads V2 and V3. Medical Decision Making - Medical Decision Making Patient is a 57-year-old female presenting with chief complaint of nausea, vomiting, and epigastric pain. On physical examination patient is vomiting in the room, diffuse tenderness on palpation of the abdomen. Lab work shows severe electrolyte abnormalities. Potassium is 1.9. Chloride is 128. Carbon dioxide is 13. Anion gap is 1. Glucose is 46, patient is given D50. Calcium is 3.8. Albumin is 1.5. Patient is negative for coronavirus and influenza. Alcohol is less than 10. CT of the abdomen and pelvis without contrast shows bilateral nonobstructing renal calculi there is a calcification near the distal right ureter which is suboptimally evaluated due to the close proximity to other structures. I also independently interpreted the CT and agree with his finding s. Patient is started on potassium and calcium replacement. She'll be admitted for severe electrolyte disturbances. Repeat labs are ordered. I spoke with Donna Chavez from [facility] accepted admission. I discussed this case with my attending Dr. Merritt. - Lab Data Result diagrams: 07/27/22 06:53 07/26/22 05:06 Lab Results 07/24/22 07/24/22 07/24/22 Range/Units 20:50 20:50 21:58 WBC 5.8 (3.8-10.6) k/uL RBC 3.49 L (3.80-5.40) m/uL Hgb 10.3 L (11.4-16.0) gm/dL Hct 31.8 L (34.0-46.0) % MCV 91.2 (80.0-100.0) fL MCH 29.6 (25.0-35.0) pg MCHC 32.5 (31.0-37.0) g/dL RDW 13.6 (11.5-15.5) % Plt Count 171 (150-450) k/uL MPV 9.4 Neutrophils % 85 % Lymphocytes % 10 % Monocytes % 4 % Eosinophils % 0 % Basophils % 0 % Neutrophils # 4.9 (1.3-7.7) k/uL Lymphocytes # 0.6 L (1.0-4.8) k/uL Monocytes # 0.3 (0-1.0) k/uL Eosinophils # 0.0 (0-0.7) k/uL Basophils # 0.0 (0-0.2) k/uL PT (9.0-12.0) sec INR (<1.2) APTT (22.0-30.0) sec VBG pH (7.31-7.41) VBG pCO2 (37-51) mmHg VBG HCO3 (24-28) mmol/L Sodium (137-145) mmol/L Potassium (3.5-5.1) mmol/L Chloride (98-107) mmol/L Carbon Dioxide (22-30) mmol/L Anion Gap mmol/L BUN (7-17) mg/dL Creatinine (0.52-1.04) mg/dL Est GFR (CKD-EPI)AfAm (>60 ml/min/1.73 sqM) Est GFR (CKD-EPI)NonAf (>60 ml/min/1.73 sqM) Glucose (74-99) mg/dL Plasma Lactic Acid Kendall (0.7-2.0) mmol/L Calcium (8.4-10.2) mg/dL Total Bilirubin (0.2-1.3) mg/dL AST (14-36) U/L ALT (4-34) U/L Alkaline Phosphatase (38-126) U/L Total Protein (6.3-8.2) g/dL Albumin (3.5-5.0) g/dL Amylase (30-110) U/L Lipase (23-300) U/L Urine Color Urine Appearance (Clear) Urine pH (5.0-8.0) Ur Specific [place] (1.001-1.035) Urine Protein (Negative) Urine Glucose (UA) (Negative) Urine Ketones (Negative) Urine Blood (Negative) Urine Nitrite (Negative) Urine Bilirubin (Negative) Urine Urobilinogen (<2.0) mg/dL Ur Leukocyte Esterase (Negative) Urine RBC (0-5) /hpf Urine WBC (0-5) /hpf Ur Squamous Epith Cells (0-4) /hpf Urine Bacteria (None) /hpf Hyaline Casts (0-2) /lpf Urine Mucus (None) /hpf Urine Opiates Screen (NotDetected) Ur Oxycodone Screen (NotDetected) Urine Methadone Screen (NotDetected) Ur Propoxyphene Screen (NotDetected) Ur Barbiturates Screen (NotDetected) U Tricyclic Antidepress (NotDetected) Ur Phencyclidine Scrn (NotDetected) Ur Amphetamines Screen (NotDetected) U Methamphetamines Scrn (NotDetected) U Benzodiazepines Scrn (NotDetected) Urine Cocaine Screen (NotDetected) U Marijuana (THC) Screen (NotDetected) Serum Alcohol mg/dL Coronavirus (PCR) Not Detected (Not Detectd) Influenza Type A RNA Not Detected (Not Detectd) Influenza Type B (PCR) Not Detected (Not Detectd) 07/24/22 07/24/22 07/24/22 Range/Units 21:58 21:58 21:58 WBC (3.8-10.6) k/uL RBC (3.80-5.40) m/uL Hgb (11.4-16.0) gm/dL Hct (34.0-46.0) % MCV (80.0-100.0) fL MCH (25.0-35.0) pg MCHC (31.0-37.0) g/dL RDW (11.5-15.5) % Plt Count (150-450) k/uL MPV Neutrophils % % Lymphocytes % % Monocytes % % Eosinophils % % Basophils % % Neutrophils # (1.3-7.7) k/uL Lymphocytes # (1.0-4.8) k/uL Monocytes # (0-1.0) k/uL Eosinophils # (0-0.7) k/uL Basophils # (0-0.2) k/uL PT 15.3 H (9.0-12.0) sec INR 1.5 H (<1.2) APTT 41.4 H (22.0-30.0) sec VBG pH (7.31-7.41) VBG pCO2 (37-51) mmHg VBG HCO3 (24-28) mmol/L Sodium 142 (137-145) mmol/L Potassium 1.9 L* (3.5-5.1) mmol/L Chloride 128 H (98-107) mmol/L Carbon Dioxide 13 L (22-30) mmol/L Anion Gap 1 mmol/L BUN 5 L (7-17) mg/dL Creatinine 0.28 L (0.52-1.04) mg/dL Est GFR (CKD-EPI)AfAm >90 (>60 ml/min/1.73 sqM) Est GFR (CKD-EPI)NonAf >90 (>60 ml/min/1.73 sqM) Glucose 46 L* (74-99) mg/dL Plasma Lactic Acid Kendall 0.8 (0.7-2.0) mmol/L Calcium 3.8 L* (8.4-10.2) mg/dL Total Bilirubin 0.2 (0.2-1.3) mg/dL AST 12 L (14-36) U/L ALT 8 (4-34) U/L Alkaline Phosphatase 32 L (38-126) U/L Total Protein 3.1 L (6.3-8.2) g/dL Albumin 1.5 L (3.5-5.0) g/dL Amylase <30 L (30-110) U/L Lipase 11 L (23-300) U/L Urine Color Urine Appearance (Clear) Urine pH (5.0-8.0) Ur Specific [place] (1.001-1.035) Urine Protein (Negative) Urine Glucose (UA) (Negative) Urine Ketones (Negative) Urine Blood (Negative) Urine Nitrite (Negative) Urine Bilirubin (Negative) Urine Urobilinogen (<2.0) mg/dL Ur Leukocyte Esterase (Negative) Urine RBC (0-5) /hpf Urine WBC (0-5) /hpf Ur Squamous Epith Cells (0-4) /hpf Urine Bacteria (None) /hpf Hyaline Casts (0-2) /lpf Urine Mucus (None) /hpf Urine Opiates Screen (NotDetected) Ur Oxycodone Screen (NotDetected) Urine Methadone Screen (NotDetected) Ur Propoxyphene Screen (NotDetected) Ur Barbiturates Screen (NotDetected) U Tricyclic Antidepress (NotDetected) Ur Phencyclidine Scrn (NotDetected) Ur Amphetamines Screen (NotDetected) U Methamphetamines Scrn (NotDetected) U Benzodiazepines Scrn (NotDetected) Urine Cocaine Screen (NotDetected) U Marijuana (THC) Screen (NotDetected) Serum Alcohol <10 mg/dL Coronavirus (PCR) (Not Detectd) Influenza Type A RNA (Not Detectd) Influenza Type B (PCR) (Not Detectd) 07/24/22 07/24/22 07/24/22 Range/Units 23:20 23:55 23:55 WBC (3.8-10.6) k/uL RBC (3.80-5.40) m/uL Hgb (11.4-16.0) gm/dL Hct (34.0-46.0) % MCV (80.0-100.0) fL MCH (25.0-35.0) pg MCHC (31.0-37.0) g/dL RDW (11.5-15.5) % Plt Count (150-450) k/uL MPV Neutrophils % % Lymphocytes % % Monocytes % % Eosinophils % % Basophils % % Neutrophils # (1.3-7.7) k/uL Lymphocytes # (1.0-4.8) k/uL Monocytes # (0-1.0) k/uL Eosinophils # (0-0.7) k/uL Basophils # (0-0.2) k/uL PT (9.0-12.0) sec INR (<1.2) APTT (22.0-30.0) sec VBG pH 7.36 (7.31-7.41) VBG pCO2 45 (37-51) mmHg VBG HCO3 25 (24-28) mmol/L Sodium (137-145) mmol/L Potassium (3.5-5.1) mmol/L Chloride (98-107) mmol/L Carbon Dioxide (22-30) mmol/L Anion Gap mmol/L BUN (7-17) mg/dL Creatinine (0.52-1.04) mg/dL Est GFR (CKD-EPI)AfAm (>60 ml/min/1.73 sqM) Est GFR (CKD-EPI)NonAf (>60 ml/min/1.73 sqM) Glucose (74-99) mg/dL Plasma Lactic Acid Kendall (0.7-2.0) mmol/L Calcium (8.4-10.2) mg/dL Total Bilirubin (0.2-1.3) mg/dL AST (14-36) U/L ALT (4-34) U/L Alkaline Phosphatase (38-126) U/L Total Protein (6.3-8.2) g/dL Albumin (3.5-5.0) g/dL Amylase (30-110) U/L Lipase (23-300) U/L Urine Color Light Yellow Urine Appearance Clear (Clear) Urine pH 5.5 (5.0-8.0) Ur Specific [place] 1.019 (1.001-1.035) Urine Protein Trace H (Negative) Urine Glucose (UA) 3+ H (Negative) Urine Ketones 3+ H (Negative) Urine Blood Moderate H (Negative) Urine Nitrite Negative (Negative) Urine Bilirubin Negative (Negative) Urine Urobilinogen <2.0 (<2.0) mg/dL Ur Leukocyte Esterase Negative (Negative) Urine RBC 5 (0-5) /hpf Urine WBC 1 (0-5) /hpf Ur Squamous Epith Cells 1 (0-4) /hpf Urine Bacteria Rare H (None) /hpf Hyaline Casts 1 (0-2) /lpf Urine Mucus Rare H (None) /hpf Urine Opiates Screen Detected H (NotDetected) Ur Oxycodone Screen Not Detected (NotDetected) Urine Methadone Screen Not Detected (NotDetected) Ur Propoxyphene Screen Not Detected (NotDetected) Ur Barbiturates Screen Not Detected (NotDetected) U Tricyclic Antidepress Not Detected (NotDetected) Ur Phencyclidine Scrn Not Detected (NotDetected) Ur Amphetamines Screen Not Detected (NotDetected) U Methamphetamines Scrn Not Detected (NotDetected) U Benzodiazepines Scrn Not Detected (NotDetected) Urine Cocaine Screen Detected H (NotDetected) U Marijuana (THC) Screen Not Detected (NotDetected) Serum Alcohol mg/dL Coronavirus (PCR) (Not Detectd) Influenza Type A RNA (Not Detectd) Influenza Type B (PCR) (Not Detectd) Disposition Clinical Impression: Hypokalemia, Hypocalcemia, Hypoalbuminemia, Nausea & vomiting Disposition: ADMITTED IP TO THIS HOSP Condition: Serious Time of Disposition: 00:03 Decision to Admit Reason: Admit from EC Decision Date: 07/25/22 Decision Time: 00:03
[2022-07-25] MEDS: SODIUM CHLORIDE 0.9% 1,000 ML IV SCH ×2 (00:26→10:13)
[2022-07-25 00:36] LABS: Appearance,Urine Clear (Clear); Bacteria,Urine Rare /hpf; Bilirubin,Urine Negative (Negative); Blood,Urine Moderate (Negative); Color,Urine Light Yellow; Glucose,Urine (UA) 3+ (Negative); Hyaline Casts,Urine 1 /lpf (0-2); Leukocyte Esterase,Urine Negative (Negative); Mucus,Urine Rare /hpf; Nitrite,Urine Negative (Negative); PH, Urine 5.5 (5.0-8.0); Protein,Urine Trace (Negative); RBC,Urine 5 /hpf (0-5); Specific Gravity,Urine 1.019 (1.001-1.035); Squamous Epithelial Cell,Urine 1 /hpf (0-4); Urobilinogen,Urine <2.0 mg/dL (<2.0); WBC,Urine 1 /hpf (0-5)
[2022-07-25 00:41] LABS: Ketones,Urine 3+ (Negative)
[2022-07-25 00:50] LABS: ALT 16 U/L (4-34); AST 26 U/L (14-36); African American GFR (CKD) >90 (>60 ml/min/1.73 sqM); Albumin 4.5 g/dL (3.5-5.0); Alkaline Phosphatase 89 U/L (38-126); Anion Gap 8 mmol/L; Blood Urea Nitrogen 10 mg/dL (7-17); Calcium 9.3 mg/dL (8.4-10.2); Carbon Dioxide 24 mmol/L (22-30); Chloride 104 mmol/L (98-107); Glucose 129 mg/dL (74-99); Magnesium 1.7 mg/dL (1.6-2.3); Non-African American GFR(CKD) >90 (>60 ml/min/1.73 sqM); Phosphorus 3.8 mg/dL (2.5-4.5); Sodium 136 mmol/L (137-145); Total Bilirubin 0.7 mg/dL (0.2-1.3); Total Protein 7.3 g/dL (6.3-8.2)
[2022-07-25 00:52] LABS: Glucose,Whole Blood 91 mg/dL (70-110)
[2022-07-25 00:53] LABS: Ionized Calcium 5.1 mg/dL (4.5-5.3)
[2022-07-25 00:58] LABS: Amphetamine Screen,Urine Not Detected (NotDetected); Barbiturate Screen,Urine Not Detected (NotDetected); Benzodiazepines Screen,Urine Not Detected (NotDetected); Cocaine Screen,Urine Detected (NotDetected); Methadone Screen, Urine Not Detected (NotDetected); Opiate Screen,Urine Detected (NotDetected); Oxycodone Screen, Urine Not Detected (NotDetected); Phencyclidine Screen,Urine Not Detected (NotDetected); Tricyclic Antidepressant,Urine Not Detected (NotDetected); Urn Cannabinoid Scrn Not Detected (NotDetected)
[2022-07-25] MEDS: POTASSIUM CHLORIDE ER 20 MEQ TAB.ER PO SCH ×2 (01:06→04:55)
[2022-07-25] MEDS: POTASSIUM CHLORIDE 20 MEQ in WATER FOR INJECTION 1 100ML.BAG IVPB SCH ×3 (01:07→07:01)
[2022-07-25] MEDS: ONDANSETRON 4 MG/2 ML VIAL IVP PRN ×2 (02:02→16:19)
--- NOTE | 2022-07-25 07:29 | XR ---
EXAMINATION TYPE: XR chest 2V DATE OF EXAM: 07/25/2022 COMPARISON: Chest x-ray June 04, 2022 HISTORY: Fever. TECHNIQUE: Frontal and lateral views of the chest are obtained. FINDINGS: There is no suspicious new focal air space opacity, pleural effusion, or pneumothorax seen . The cardiac silhouette size remains within normal limits. The osseous structures are intact. IMPRESSION: No new suspicious acute pulmonary process.
[2022-07-25] MEDS: amLODIPine 5 MG TAB PO SCH (09:39)
[2022-07-25] MEDS ORDERED: HYDROcodone/APAP 5-325MG 1 EACH TAB PO STA (09:48)
--- NOTE | 2022-07-25 09:57 | P.HPIM ---
History of Present Illness This is a pleasant 57 years old -[place] female with past medical history of hypertension, hyperlipidemia and osteoarthritis. Presents with abdominal pain and nausea vomiting Patient says that her symptoms started 2 days ago with generalized pain, and that she has epigastric abdominal pain about 5/10, nonradiating felt like sharp pain associated with frequent vomiting, she states about 20 times it was a green stuff with no blood in it. Today she did not vomit but she feels nausea. Last bowel movement was about 2 days ago. Also she has frontal headache radiating to both eyes about 6/10, since yesterday associated with little room spinning No weakness or numbness, no blurred vision or slurred speech but she has neck pain. Actually the patient has pain all over her body including chest and limbs and she thinks all related to the same pain. She denies any specific urinary symptoms. She has poor appetite since last 2 days. She smokes about half pack per day and she was counseled to quit and she agrees with nicotine patch. She quit drinking alcohol for about a year. She does cocaine and heroin, about 3 days ago with her friends, she does not use it regularly, she was counseled to quit and she agrees. She denies active the persistent symptoms, she denies homicidal or suicidal ideation, she denies hallucination or delusions Vitals reviewed, patient has a blood pressure 176/83, also she had low-grade fever of 100.1. CBC showing mild anemia with hemoglobin 10.3, lysis unremarkable. INR 1.5. Chest severe hypokalemia, hypoglycemia and hypocalcemia, after receiving IV fluids and replacement these are corrected and normal this morning included potassium of 4.0, glucose 129 and then 91 and calcium 9.3 TSH is normal 0.7. Urinalysis is suspicious of infection. Urine drug screen is positive for opiates, and cocaine In the emergency room she received pain medication, IV fluids and calcium and potassium and Zofran. Viruses including influenza and Covid are undetected. Chest x-ray is normal with no acute process. Radiologist Review of Systems Review of systems CONSTITUTIONAL: no malaise, no fatigue. HEENT: No recent visual problems or hearing problems. Denied any sore throat. CARDIOVASCULAR: No orthopnea, PND, no palpitations, no syncope. PULMONARY: No shortness of breath, no cough, no hemoptysis. GASTROINTESTINAL: No diarrhea, no nausea, Normoactive bowel sounds. NEUROLOGICAL:no weakness, no numbness. HEMATOLOGICAL: Denies any bleeding or petechiae. GENITOURINARY: Denies any burning micturition, frequency, or urgency. MUSCULOSKELETAL/RHEUMATOLOGICAL: Denies any joint pain, swelling, or any muscle pain. ENDOCRINE: Denies any polyuria or polydipsia. Past Medical History Past Medical History: Hyperlipidemia, Hypertension, Osteoarthritis (OA) History of Any Multi-Drug Resistant Organisms: None Reported Past Surgical History: Breast Surgery, Section Additional Past Surgical History / Comment(s): Lump exc Lt breast Past Anesthesia/Blood Transfusion Reactions: No Reported Reaction Past Psychological History: Anxiety, Depression Additional Psychological History / Comment(s): [facility] Smoking Status: Current every day smoker Past Alcohol Use History: None Reported Additional Past Alcohol Use History / Comment(s): Smokes 1 ppd, since age 13. PATIENT STATES SHE QUIT DRINKING ALCOHOL Past Drug Use History: None Reported - Past Family History Mother Family Medical History: Cancer Additional Family Medical History / Comment(s): lung cancer Medications and Allergies Home Medications Medication Instructions Recorded Confirmed Type No Known Home Medications 07/25/22 07/25/22 History Allergies Allergy/AdvReac Type Severity Reaction Status Date / Time No Known Allergies Allergy Verified 07/25/22 08:08 Physical Exam Vitals: Vital Signs Temp Pulse Pulse Resp BP BP Pulse Ox 07/25/22 01:42 100.1 F H 60 176/83 98 07/25/22 01:41 60 07/25/22 01:01 98.9 F 74 16 133/72 100 07/24/22 23:36 78 16 135/45 100 07/24/22 23:21 99.1 F 82 16 170/89 100 07/24/22 20:06 98.8 F 82 16 170/89 100 07/24/22 20:04 98.9 F 66 16 100 Intake and Output 07/24/22 07/24/22 07/25/22 14:59 22:59 06:59 Intake Total 660 Balance 660 Intake: Intake, IV Titration 300 Amount Sodium Chloride 0.9% 1, 300 000 ml @ 75 mls/hr IV . [id number] JA Rx#:[id number] Oral 360 Other: # Voids 1 Weight 77.111 kg 77.111 kg -GENERAL: The patient is alert and oriented x3, in any acute distress due to pain. Well developed, well nourished. HEENT: Pupils are round and equally reacting to light. EOMI. No scleral icterus. No conjunctival pallor. Normocephalic, atraumatic. No pharyngeal erythema. No thyromegaly. CARDIOVASCULAR: S1 and S2 present. No murmurs, rubs, or gallops. PULMONARY: Chest is clear to auscultation, no wheezing or crackles. -ABDOMEN: Soft, epigastric tenderness, nondistended, normoactive bowel sounds. No palpable organomegaly. -MUSCULOSKELETAL: No joint swelling or deformity. Tenderness all over her body EXTREMITIES: No cyanosis, clubbing, or pedal edema. NEUROLOGICAL: Gross neurological examination did not reveal any focal deficits. SKIN: No rashes. no petechiae. Results CBC & Chem 7: 07/24/22 21:58 07/25/22 00:18 Labs: Abnormal Lab Results - Last 24 Hours (Table) 07/24/22 07/24/22 07/24/22 Range/Units 21:58 21:58 21:58 RBC 3.49 L (3.80-5.40) m/uL Hgb 10.3 L (11.4-16.0) gm/dL Hct 31.8 L (34.0-46.0) % Lymphocytes # 0.6 L (1.0-4.8) k/uL PT 15.3 H (9.0-12.0) sec INR 1.5 H (<1.2) APTT 41.4 H (22.0-30.0) sec Sodium (137-145) mmol/L Potassium 1.9 L* (3.5-5.1) mmol/L Chloride 128 H (98-107) mmol/L Carbon Dioxide 13 L (22-30) mmol/L BUN 5 L (7-17) mg/dL Creatinine 0.28 L (0.52-1.04) mg/dL Glucose 46 L* (74-99) mg/dL Calcium 3.8 L* (8.4-10.2) mg/dL AST 12 L (14-36) U/L Alkaline Phosphatase 32 L (38-126) U/L Total Protein 3.1 L (6.3-8.2) g/dL Albumin 1.5 L (3.5-5.0) g/dL Amylase <30 L (30-110) U/L Lipase 11 L (23-300) U/L Urine Protein (Negative) Urine Glucose (UA) (Negative) Urine Ketones (Negative) Urine Blood (Negative) Urine Bacteria (None) /hpf Urine Mucus (None) /hpf Urine Opiates Screen (NotDetected) Urine Cocaine Screen (NotDetected) 07/24/22 07/24/22 07/25/22 Range/Units 23:55 23:55 00:18 RBC (3.80-5.40) m/uL Hgb (11.4-16.0) gm/dL Hct (34.0-46.0) % Lymphocytes # (1.0-4.8) k/uL PT (9.0-12.0) sec INR (<1.2) APTT (22.0-30.0) sec Sodium 136 L (137-145) mmol/L Potassium (3.5-5.1) mmol/L Chloride (98-107) mmol/L Carbon Dioxide (22-30) mmol/L BUN (7-17) mg/dL Creatinine (0.52-1.04) mg/dL Glucose 129 H (74-99) mg/dL Calcium (8.4-10.2) mg/dL AST (14-36) U/L Alkaline Phosphatase (38-126) U/L Total Protein (6.3-8.2) g/dL Albumin (3.5-5.0) g/dL Amylase (30-110) U/L Lipase (23-300) U/L Urine Protein Trace H (Negative) Urine Glucose (UA) 3+ H (Negative) Urine Ketones 3+ H (Negative) Urine Blood Moderate H (Negative) Urine Bacteria Rare H (None) /hpf Urine Mucus Rare H (None) /hpf Urine Opiates Screen Detected H (NotDetected) Urine Cocaine Screen Detected H (NotDetected) Thrombosis Risk Factor Assmnt - Choose All That Apply Each Factor Represents 1 point: Age 41-60 years Other Risk Factors: No Other congenital or acquired thrombophilia - If yes, enter type in comment: No Thrombosis Risk Factor Assessment Total Risk Factor Score: 1 Thrombosis Risk Factor Assessment Level: Low Risk Assessment and Plan Assessment: epigastric abdominal pain with vomiting, CT of the abdomen and pelvis show nonobstructive renal calculi Significant headache with some mild vertigo Fever of unknown origin Substance abuse with opiates and cocaine Nicotine dependence, she decided to quit on her own Hypertension Hyperlipidemia History of osteoarthritis Plan: Continue with bowel rest IV fluids Pain management GI consult Send blood culture Check procalcitonin Neurology team consult Do neuro check Send for blood culture Start the patient empirically on Rocephin Patient is counseled to quit substances including smoking and heroin and cocaine and she agrees Labs and medication were reviewed.. Continue same treatment. Continue with symptomatic treatment. Resume home medication. Monitor labs and vitals. DVT and GI prophylaxis. Further recommendations as per clinical course of the patient DVT prophylaxis: Subcutaneous heparin GI Prophylaxis: Ppi PT/OT: Pending Prognosis is guarded
[2022-07-25] MEDS ORDERED: PANTOPRAZOLE 40 MG/10 ML VIAL IVP SCH (10:00)
[2022-07-25 11:47] LABS: Basophils % (A) 0 %; Eosinophils % (A) 0 %; HCT 46.7 % (34.0-46.0); Lymphocytes # (A) 1.2 k/uL (1.0-4.8); Lymphocytes % (A) 11 %; MCH 30.7 pg (25.0-35.0); MCHC 33.2 g/dL (31.0-37.0); MCV 92.5 fL (80.0-100.0); Mean Platelet Volume 11.6; Monocytes # (A) 0.6 k/uL (0-1.0); Monocytes % (A) 5 %; Neutrophils # (A) 8.7 k/uL (1.3-7.7); Neutrophils % (A) 82 %; Platelet Count 285 k/uL (150-450); RBC 5.05 m/uL (3.80-5.40); RDW 13.1 % (11.5-15.5); WBC 10.6 k/uL (3.8-10.6)
[2022-07-25 11:53] LABS: African American GFR (CKD) >90 (>60 ml/min/1.73 sqM); Anion Gap 10 mmol/L; Blood Urea Nitrogen 8 mg/dL (7-17); Calcium 9.8 mg/dL (8.4-10.2); Carbon Dioxide 25 mmol/L (22-30); Chloride 102 mmol/L (98-107); Creatine Kinase 177 U/L (30-135); Glucose 110 mg/dL (74-99); Non-African American GFR(CKD) >90 (>60 ml/min/1.73 sqM); Potassium 4.5 mmol/L (3.5-5.1); Sodium 137 mmol/L (137-145)
[2022-07-25 12:01] LABS: HGB 15.5 gm/dL (11.4-16.0)
--- NOTE | 2022-07-25 12:47 | P.CONS ---
History of Present Illness - Reason for Consult Consult date: 07/25/22 Epigastric pain, nausea and vomiting Requesting physician: Hua E Sheet - Chief Complaint Nausea and vomiting, abdominal pain - History of Present Illness This a pleasant 57-year-old -[place] female who presented to the emergency department yesterday evening with complaints of nausea vomiting and abdominal pain. She has a past medical history significant for heroine abuse, alcoholism, hyperlipidemia, hypertension and anxiety and depression. She is a current daily smoker. States she does not drink daily but she used to drink more. She currently uses heroin and cocaine admits to last time on Friday. States that she started having nausea and vomiting yesterday followed by abdominal pain and presented to the emergency department for further evaluation. She denies any hematemesis, states she may have had some dark emesis. Denies any blood in her stool or black stool. She denies any previous history of peptic ulcer disease, no previous EGD colonoscopy. On admission hemoglobin was stable at 10.3 INR 1.5 sodium 142 potassium was 1.9 with replacement. Urine drug screen came back positive for opioids and cocaine. Patient has been febrile with low-grade temp of 100.1 through the night and 99.3 this morning. Also complaining of severe headache. Patient actually is complaining of pain everywhere in her body. She is no longer vomiting, states she has some nausea still has some abdominal pain. Labs WBC 10.6 hemoglobin 15 hematocrit 46 platelet count 285 sodium 137 potassium 4.5 BUN 8 creatinine 0.7 glucose 110 total bilirubin 0.7 AST 26 ALT 16 L claim phosphatase 89 creatinine kinase 177 amylase less than 30 and lipase 11, patient also had a glucose level of 46 on admission [facility] x-ray reports bilateral calculi project of the kidneys there is calcific density near the right vertebral pelvic junction. Consider CT renal stone protocol for further evaluation. CT abdomen and pelvis without contrast reports bilateral nonobstructing renal calculi. Calcification near the distal right ureter which is suboptimally evaluated due to its close proximity to other structures. Correlate for right flank pain. Calcification may be within the right ovary. Calcific density projecting near the right renal sinus on prior radiograph felt to represent the tip of the right transverse process of L3. Review of Systems REVIEW OF SYSTEMS: CARDIOPULMONARY: No chest pain or shortness of breath. Gastrointestinal: Epigastric pain. Nausea and vomiting however vomiting has resolved. Patient remains nauseated. No hematemesis, coffee-ground emesis. No rectal bleeding, or melena. GENITOURINARY: No dysuria or hematuria. MUSCULOSKELETAL: Reports normal range of motion. Joint pain. SKIN: No rashes. No jaundice. ENDOCRINE: No chills, fevers. No excessive weight gain or loss. No polydipsia or polyuria. PSYCHIATRIC: Unremarkable. NEUROLOGY: No change in mental status. Complaints of severe headache. ENT: Vision unremarkable. CONSTITUTIONAL: No recent weight loss. No fever, chills, night sweats. Past Medical History Past Medical History: Hyperlipidemia, Hypertension, Osteoarthritis (OA) History of Any Multi-Drug Resistant Organisms: None Reported Past Surgical History: Breast Surgery, Section Additional Past Surgical History / Comment(s): Lump exc Lt breast Past Anesthesia/Blood Transfusion Reactions: No Reported Reaction Past Psychological History: Anxiety, Depression Additional Psychological History / Comment(s): goes to [facility] Smoking Status: Current every day smoker Past Alcohol Use History: None Reported Additional Past Alcohol Use History / Comment(s): Smokes 1 ppd, since age 13. PATIENT STATES SHE QUIT DRINKING ALCOHOL Past Drug Use History: None Reported - Past Family History Mother Family Medical History: Cancer Additional Family Medical History / Comment(s): lung cancer Medications and Allergies Home Medications Medication Instructions Recorded Confirmed Type No Known Home Medications 07/25/22 07/25/22 History Allergies Allergy/AdvReac Type Severity Reaction Status Date / Time No Known Allergies Allergy Verified 07/25/22 08:08 Physical Exam Vitals: Vital Signs Temp Pulse Pulse Resp BP BP Pulse Ox 07/25/22 08:56 99.3 F 07/25/22 08:00 62 17 174/75 98 07/25/22 01:42 100.1 F H 60 176/83 98 07/25/22 01:41 60 07/25/22 01:01 98.9 F 74 16 133/72 100 07/24/22 23:36 78 16 135/45 100 07/24/22 23:21 99.1 F 82 16 170/89 100 07/24/22 20:06 98.8 F 82 16 170/89 100 07/24/22 20:04 98.9 F 66 16 100 Intake and Output 07/24/22 07/25/22 07/25/22 22:59 06:59 14:59 Intake Total 660 Balance 660 Intake: Intake, IV Titration 300 Amount Sodium Chloride 0.9% 1, 300 000 ml @ 75 mls/hr IV . [id number] Rx#:[id number] Oral 360 Other: # Voids 1 1 Weight 77.111 kg 77.111 kg General appearance: The patient is alert, oriented, appears in no acute distress. HET: Head is normocephalic and atraumatic. Conjunctiva pink. Sclera anicteric. Neck: Supple without lymphadenopathy. Trachea midline. Heart: S1 S2. Regular rate and rhythm. Lungs: Clear to auscultation. Abdomen: Soft, diffuse abdominal tenderness, abdominal scar tissue, nondistended with bowel sounds. No guarding or rigidity. Skin: No rashes. No jaundice. Extremities: Normal skin color and turgor. No pedal edema. Neurological: No focal deficits. Alert and oriented x3. Results CBC & Chem 7: 07/25/22 07:37 07/25/22 07:37 Labs: Abnormal Lab Results - Last 24 Hours (Table) 07/24/22 07/24/22 07/24/22 Range/Units 21:58 21:58 21:58 RBC 3.49 L (3.80-5.40) m/uL Hgb 10.3 L (11.4-16.0) gm/dL Hct 31.8 L (34.0-46.0) % Lymphocytes # 0.6 L (1.0-4.8) k/uL PT 15.3 H (9.0-12.0) sec INR 1.5 H (<1.2) APTT 41.4 H (22.0-30.0) sec Sodium (137-145) mmol/L Potassium 1.9 L* (3.5-5.1) mmol/L Chloride 128 H (98-107) mmol/L Carbon Dioxide 13 L (22-30) mmol/L BUN 5 L (7-17) mg/dL Creatinine 0.28 L (0.52-1.04) mg/dL Glucose 46 L* (74-99) mg/dL Calcium 3.8 L* (8.4-10.2) mg/dL AST 12 L (14-36) U/L Alkaline Phosphatase 32 L (38-126) U/L Total Protein 3.1 L (6.3-8.2) g/dL Albumin 1.5 L (3.5-5.0) g/dL Amylase <30 L (30-110) U/L Lipase 11 L (23-300) U/L Urine Protein (Negative) Urine Glucose (UA) (Negative) Urine Ketones (Negative) Urine Blood (Negative) Urine Bacteria (None) /hpf Urine Mucus (None) /hpf Urine Opiates Screen (NotDetected) Urine Cocaine Screen (NotDetected) 07/24/22 07/24/22 07/25/22 Range/Units 23:55 23:55 00:18 RBC (3.80-5.40) m/uL Hgb (11.4-16.0) gm/dL Hct (34.0-46.0) % Lymphocytes # (1.0-4.8) k/uL PT (9.0-12.0) sec INR (<1.2) APTT (22.0-30.0) sec Sodium 136 L (137-145) mmol/L Potassium (3.5-5.1) mmol/L Chloride (98-107) mmol/L Carbon Dioxide (22-30) mmol/L BUN (7-17) mg/dL Creatinine (0.52-1.04) mg/dL Glucose 129 H (74-99) mg/dL Calcium (8.4-10.2) mg/dL AST (14-36) U/L Alkaline Phosphatase (38-126) U/L Total Protein (6.3-8.2) g/dL Albumin (3.5-5.0) g/dL Amylase (30-110) U/L Lipase (23-300) U/L Urine Protein Trace H (Negative) Urine Glucose (UA) 3+ H (Negative) Urine Ketones 3+ H (Negative) Urine Blood Moderate H (Negative) Urine Bacteria Rare H (None) /hpf Urine Mucus Rare H (None) /hpf Urine Opiates Screen Detected H (NotDetected) Urine Cocaine Screen Detected H (NotDetected) Comments: [facility] x-ray reports bilateral calculi project of the kidneys there is calcific density near the right vertebral pelvic junction. Consider CT renal stone protocol for further evaluation. CT abdomen and pelvis without contrast reports bilateral nonobstructing renal calculi. Calcification near the distal right ureter which is suboptimally evaluated due to its close proximity to other structures. Correlate for right flank pain. Calcification may be within the right ovary. Calcific density projecting near the right renal sinus on prior radiograph felt to represent the tip of the right transverse process of L3. Assessment and Plan (1) Nausea & vomiting Narrative/Plan: 57-year-old female who presented to the emergency department with nausea vomiting and abdominal pain with known to be severely hypokalemic on admission. She had one day of nausea and vomiting with abdominal pain. Patient actually has complaints of diffuse pain all over including headache. She was known to have low-grade temp of 100.1 and again 99.3. Patient abuses here when last used on Friday. Also has a history in the past of heroin overdose recently. Patient denies any NSAIDs or history of peptic ulcer disease. No recent EGD. Denies any hematemesis or blood or black stool. Unclear etiology likely multifactorial including electrolyte imbalance, possible gastroenteritis. Patient's hemoglobin has been stable. Will treat symptomatically at this time including diet as tolerated, IV fluids, replace electrolytes, antiemetics and Protonix for GI prophylaxis. Current Visit: Yes Status: Acute Code(s): R11.2 - NAUSEA WITH VOMITING, UNSPECIFIED SNOMED Code(s): 73744828 (2) Abdominal pain Current Visit: Yes Status: Acute Code(s): R10.9 - UNSPECIFIED ABDOMINAL PAIN SNOMED Code(s): 04170895 (3) Heroin abuse Current Visit: Yes Status: Acute Code(s): F11.10 - OPIOID ABUSE, UNCOMPLICATED SNOMED Code(s): 9202574 (4) Hypocalcemia Current Visit: Yes Status: Acute Code(s): E83.51 - HYPOCALCEMIA SNOMED Code(s): 4614086 (5) Hypokalemia Current Visit: Yes Status: Acute Code(s): E87.6 - HYPOKALEMIA SNOMED Code(s): 18646250 Plan: 1. Continue symptomatic and supportive care 2. Diet as tolerated 3. Replace potassium per protocol 4. Replace magnesium 5. Antiemetics as needed 6. Recommend heroin/drug use abstinence 7. Protonix 40 mg twice a day Thank you for this consultation, we will continue to follow. Dr. Karen Camacho I agree with the dictator's note, documented as a scribe by Vita Raphael.
[2022-07-25] MEDS: HYDROcodone/APAP 5-325MG 1 EACH TAB PO PRN ×2 (16:19→21:35)
[2022-07-25] MEDS: PANTOPRAZOLE 40 MG/10 ML VIAL IVP SCH (21:34)
[2022-07-25] MEDS: HEPARIN SODIUM,PORCINE/PF 5,000 UNIT/0.5 ML SYRINGE SQ SCH (21:34)
[2022-07-26] MEDS: HYDROcodone/APAP 5-325MG 1 EACH TAB PO PRN ×3 (02:45→19:51)
[2022-07-26] MEDS: SODIUM CHLORIDE 0.9% 1,000 ML IV SCH ×2 (02:48→02:50)
[2022-07-26] MEDS: ONDANSETRON 4 MG/2 ML VIAL IVP PRN (02:49)
[2022-07-26 06:11] LABS: Glucose,Whole Blood 96 mg/dL (70-110)
[2022-07-26] MEDS ORDERED: PROMETHAZINE 25 MG TAB PO PRN (07:12)
[2022-07-26] MEDS: PANTOPRAZOLE 40 MG/10 ML VIAL IVP SCH ×2 (08:47→19:51)
[2022-07-26] MEDS: HEPARIN SODIUM,PORCINE/PF 5,000 UNIT/0.5 ML SYRINGE SQ SCH ×2 (09:15→19:51)
[2022-07-26] MEDS: amLODIPine 5 MG TAB PO SCH ×2 (09:15→19:51)
[2022-07-26 09:29] LABS: Basophils # (A) 0.04 X 10*3/uL (0.00-0.10); Basophils % (A) 0.4 %; Eosinophils # (A) 0 X 10*3/uL (0.04-0.35); Eosinophils % (A) 0 %; HCT 43.6 % (37.2-46.3); Immature Grans, Automated 0.4 %; Lymphocytes # (A) 1.51 X 10*3/uL (0.90-5.00); Lymphocytes % (A) 13.8 %; MCH 29.8 pg (27.0-32.0); MCHC 34.4 g/dL (32.0-37.0); MCV 86.7 fL (80.0-97.0); Mean Platelet Volume 12.5 fL (9.5-12.2); Monocytes # (A) 0.57 X 10*3/uL (0.20-1.00); Monocytes % (A) 5.2 %; NRBC Per 100 WBC 0 /100 WBCS (0.0-0.0); Neutrophils # (A) 8.77 X 10*3/uL (1.80-7.70); Neutrophils % (A) 80.2 %; Platelet Count 233 X 10*3/uL (140-440); RBC 5.03 X 10*6/uL (4.10-5.20); RDW 13.3 % (11.5-14.5); WBC 10.93 X 10*3/uL (4.50-10.00)
[2022-07-26 09:52] LABS: African American GFR (CKD) 111.5 (60.0-200.0); Albumin 4.3 g/dL (3.8-4.9); Albumin/Globulin Ratio 1.54 (1.60-3.17); Anion Gap 14.1 mmol/L (10.00-18.00); Blood Urea Nitrogen 9.8 mg/dL (9.0-27.0); Calcium 9.3 mg/dL (8.7-10.3); Carbon Dioxide 22.9 mmol/L (20.0-27.5); Globulin 2.8 g/dL (1.6-3.3); Magnesium 1.8 mg/dL (1.5-2.4); Non-African American GFR(CKD) 96.2 (60.0-200.0); Phosphorus 3.1 mg/dL (2.4-5.1); Total Bilirubin 0.6 mg/dL (0.30-1.20); Total Protein 7.1 g/dL (6.2-8.2)
--- NOTE | 2022-07-26 10:09 | P.CRDCN ---
History of Present Illness History of present illness: This is a 57 year old female with a past medical history of polysubstance abuse with heroine, cocaine, alcoholism, history of hypertension, dyslipidemia, chronic nicotine dependence, anxiety and depression. She presented to the ER on 07/24 with epigastric pain, abdominal pain, nausea and vomiting. Found to hypokalemic with a potassium of 1.9 and calcium 3.8. Her electrolytes have been replaced. Patient seen and examined at bedside, complains of feeling sick and generalized weakness and nausea. She had an episode of chest pain yesterday. Her pain was in her epigastric/midsternal chest area. Non-radiatin. No exacerbated by activity. She has been having nausea and vomiting. No shortness of breath or diaphoresis. Troponin was drawn which was mildly elevated at 0.04. Repeat was negative. EKG was not performed. She denies any further chest pain. No shortness of breath. She has no known history of CAD, [place], Stroke, diabetes, seizure, any asthma or COPD. She does currently smoke cigarettes, one pack per day. She denies any current alcohol use DIAGNOSTICS * EKG on admission revealed sinus rhythm HR 74, incomplete right bundle branch block, non-specific ST-T wave abnormalities, prolonged QT * Telemetry tracings indicate sinus mechanism, heart rate in the 60s * Chest xray no acute cardiopulmonary process * Laboratory reviewed, WBC 10.9, hemoglobin 15, platelets 233, troponin 0.04, repeat negative, sodium 135, potassium 4.0, BUN 9.8, serum current 0.7, magnesium 1.8 * Current home cardiac medications include none. REVIEW OF SYSTEMS At the time of my exam: CONSTITUTIONAL: Denies fever or chills. CARDIOVASCULAR: Denies chest pain, shortness of breath, orthopnea, PND or pal pitations. RESPIRATORY: Denies cough. GASTROINTESTINAL: Denies abdominal pain, diarrhea, constipation,+ nausea+ vomiting. MUSCULOSKELETAL: Denies myalgias. NEUROLOGIC: Denies numbness, tingling, headacbe or weakness. ENDOCRINE: Denies fatigue, weight change, polydipsia or polyurina. GENITOURINARY: Denies burning, hematuria or urgency with micturation. HEMATOLOGIC: Denies history of anemia or bleeding. PHYSICAL EXAMINATION Blood pressure 170/80, heart rate 55, afebrile, oxygen saturations 90% on room air CONSTITUTIONAL: No apparent distress. HEENT: Head is normocephalic. Pupils are equal, round. Sclerae anicteric. Mucous membranes of the mouth are moist. No JVD. No carotid bruit. CHEST EXAMINATION: Lungs are clear to auscultation. No chest wall tenderness is noted on palpation or with deep breathing. HEART EXAMINATION: Regular rate and rhythm. S1, S2 heard. No murmurs, gallops or rub. ABDOMEN: Soft, nontender. Positive bowel sounds. EXTREMITIES: 2+ peripheral pulses, no lower extremity edema and no calf tenderness. NEUROLOGIC EXAMINATION: Patient is awake, alert and oriented x3. ASSESSMENT Episode of chest pain, resolved Mildly elevated troponin x 1, repeat negative, not consistent with acute coronary syndrome Nausea, vomiting Hypokalemia, resolved Hypocalcemia, resolved Polysubstance abuse with heroine, cocaine and alcohol Hypertension Dyslipidemia Chronic nicotine dependence Anxiety and depression PLAN Continue amlodipine ok to increase to 5mg BID for BP control Echocardiogram revealed EF 65%, mild mitral regurgitation and mild tricuspid regurgitation No further inpatient workup from cardiology perspective We will follow the patient as needed. Please reconsult if needed. Nurse practitioner note has been reviewed by physician. Signing provider agrees with the documented findings, assessment, and plan of care. Past Medical History Past Medical History: Hyperlipidemia, Hypertension, Osteoarthritis (OA) History of Any Multi-Drug Resistant Organisms: None Reported Past Surgical History: Breast Surgery, Section Additional Past Surgical History / Comment(s): Lump exc Lt breast Past Anesthesia/Blood Transfusion Reactions: No Reported Reaction Past Psychological History: Anxiety, Depression Additional Psychological History / Comment(s): goes to [facility] Smoking Status: Current every day smoker Past Alcohol Use History: None Reported Additional Past Alcohol Use History / Comment(s): Smokes 1 ppd, since age 13. PATIENT STATES SHE QUIT DRINKING ALCOHOL Past Drug Use History: None Reported - Past Family History Mother Family Medical History: Cancer Additional Family Medical History / Comment(s): lung cancer Medications and Allergies Home Medications Medication Instructions Recorded Confirmed Type No Known Home Medications 07/25/22 07/25/22 History Allergies Allergy/AdvReac Type Severity Reaction Status Date / Time No Known Allergies Allergy Verified 07/25/22 08:08 Physical Exam Vitals: Vital Signs Temp Pulse Resp BP Pulse Ox 07/26/22 02:00 97.9 F 59 L 18 173/81 99 07/25/22 19:27 98.6 F 59 L 17 167/79 99 07/25/22 13:52 99.9 F H 70 17 165/87 100 07/25/22 08:56 99.3 F 07/25/22 08:00 62 17 174/75 98 Intake and Output 07/25/22 07/26/22 07/26/22 22:59 06:59 14:59 Intake Total 1380 Balance 1380 Intake: Intake, IV Titration 900 Amount Sodium Chloride 0.9% 1, 900 000 ml @ 75 mls/hr IV . [id number] [facility] Rx#:[id number] Oral 480 Other: # Voids 2 Results 07/26/22 05:06 07/26/22 05:06 Cardiac Enzymes 07/25/22 07/26/22 Range/Units 07:37 05:06 Troponin I 0.043 H* 0.024 (0.000-0.034) ng/mL CBC 07/25/22 Range/Units 07:37 WBC 10.6 (3.8-10.6) k/uL RBC 5.05 (3.80-5.40) m/uL Hgb 15.5 D (11.4-16.0) gm/dL Hct 46.7 H (34.0-46.0) % Plt Count 285 (150-450) k/uL Comprehensive Metabolic Panel 07/25/22 Range/Units 07:37 Sodium 137 (137-145) mmol/L Potassium 4.5 (3.5-5.1) mmol/L Chloride 102 (98-107) mmol/L Carbon Dioxide 25 (22-30) mmol/L BUN 8 (7-17) mg/dL Creatinine 0.72 (0.52-1.04) mg/dL Glucose 110 H (74-99) mg/dL Calcium 9.8 (8.4-10.2) mg/dL Current Medications Generic Name Dose Route Start Last Admin Trade Name Freq PRN Reason Stop Dose Admin Hydrocodone Bitart/Acetaminophen 1 each 07/25/22 09:48 07/26/22 02:45 Hydrocodone/Apap 5-325mg 1 Each Tab PO 1 each Q6HR PRN Administration Pain Amlodipine Besylate 5 mg 07/25/22 09:00 07/25/22 09:39 Amlodipine 5 Mg Tab PO Not Given DAILY JA Heparin Sodium (Porcine) 5,000 unit 07/25/22 21:00 07/25/22 21:34 Heparin Sodium,Porcine/Pf 5,000 Unit/0.5 Ml Syringe SQ 5,000 unit Q12HR JA Administration Sodium Chloride 1,000 mls @ 75 mls/hr 07/24/22 23:45 07/26/22 02:50 Saline 0.9% IV 75 mls/hr .[id number] JA Administration Ceftriaxone Sodium 1 gm/ 50 mls @ 100 mls/hr 07/25/22 10:00 07/25/22 10:11 Sodium Chloride IVPB 100 mls/hr Q24HR JA Administration Protocol Miscellaneous Information 1 each 07/24/22 22:41 Potassium Replacement Protocol 1 Each Misc MISCELLANE DAILY PRN Per Protocol Protocol Naloxone HCl 0.2 mg 07/24/22 23:59 Naloxone 0.4 Mg/Ml 1 Ml Vial IV Q2M PRN Opioid Reversal Ondansetron HCl 4 mg 07/24/22 23:59 07/26/22 02:49 Ondansetron 4 Mg/2 Ml Vial IVP 4 mg Q8HR PRN Administration Nausea And Vomiting Pantoprazole Sodium 40 mg 07/25/22 21:00 07/25/22 21:34 Pantoprazole 40 Mg/10 Ml Vial IVP 40 mg BID JA Administration Promethazine HCl 12.5 mg 07/26/22 07:12 Promethazine 25 Mg Tab PO Q6HR PRN Nausea And Vomiting Intake and Output 07/25/22 07/26/22 07/26/22 22:59 06:59 14:59 Intake Total 1380 Balance 1380 Intake: Intake, IV Titration 900 Amount Sodium Chloride 0.9% 1, 900 000 ml @ 75 mls/hr IV . [id number] [facility] Rx#:[id number] Oral 480 Other: # Voids 2 07/25/22 07:37 07/25/22 07:37
--- NOTE | 2022-07-26 10:22 | P.PN ---
Subjective Progress Note Date: 07/26/22 Principal diagnosis: Nausea vomiting abdominal pain, headache This a pleasant 57-year-old -[place] female who presented to the emergency department yesterday evening with complaints of nausea vomiting and abdominal pain. She has a past medical history significant for heroine abuse, alcoholism, hyperlipidemia, hypertension and anxiety and depression. She is a current daily smoker. States she does not drink daily but she used to drink more. She currently uses heroin and cocaine admits to last time on Friday. States that she started having nausea and vomiting yesterday followed by abdominal pain and presented to the emergency department for further evaluation. She denies any hematemesis, states she may have had some dark emesis. Denies any blood in her stool or black stool. She denies any previous history of peptic ulcer disease, no previous EGD colonoscopy. On admission hemoglobin was stable at 10.3 INR 1.5 sodium 142 potassium was 1.9 with replacement. Urine drug screen came back positive for opioids and cocaine. Patient has been febrile with low-grade temp of 100.1 through the night and 99.3 this morning. Also complaining of severe headache. Patient actually is complaining of pain everywhere in her body. She is no longer vomiting, states she has some nausea still has some abdominal pain. Labs WBC 10.6 hemoglobin 15 hematocrit 46 platelet count 285 sodium 137 potassium 4.5 BUN 8 creatinine 0.7 glucose 110 total bilirubin 0.7 AST 26 ALT 16 L claim phosphatase 89 creatinine kinase 177 amylase less than 30 and lipase 11, patient also had a glucose level of 46 on admission [facility] x-ray reports bilateral calculi project of the kidneys there is calcific density near the right vertebral pelvic junction. Consider CT renal stone protocol for further evaluation. CT abdomen and pelvis without contrast reports bilateral nonobstructing renal calculi. Calcification near the distal right ureter which is suboptimally evaluated due to its close proximity to other structures. Correlate for right flank pain. Calcification may be within the right ovary. Calcific density projecting near the right renal sinus on prior radiograph felt to represent the tip of the right transverse process of L3. 05/26/2022. Patient seen and examined today as a follow-up for nausea vomiting and epigastric pain. Yesterday afternoon patient stated abdominal pain had improved significantly, abdomen was nontender. She stated that nausea vomiting also had improved. This morning she states she still having some nausea and decreased appetite abdominal pain present but improved. Denies any vomiting. Hemoglobin stable at 15, sodium 135 potassium 4.0 magnesium 1.8. Patient has been afebrile throughout the night. Objective - Vital Signs Vital signs: Vital Signs Temp 97.9 F 07/26/22 02:00 Pulse 59 L 07/26/22 02:00 Resp 18 07/26/22 02:00 BP 173/81 07/26/22 02:00 Pulse Ox 99 07/26/22 02:00 FiO2 Intake & Output 07/25/22 07/25/22 07/26/22 06:59 18:59 06:59 Intake Total 660 1380 Balance 660 1380 Weight 77.111 kg Intake: Intake, IV Titration 300 900 Amount Sodium Chloride 0.9% 1, 300 900 000 ml @ 75 mls/hr IV . [id number] [facility] Rx#:[id number] Oral 360 480 Other: # Voids 1 1 2 - Exam General appearance: The patient is alert, oriented, appears in no acute distress. HET: Head is normocephalic and atraumatic. Conjunctiva pink. Sclera anicteric. Neck: Supple without lymphadenopathy. Abdomen: Soft, mild tenderness to palpation, nondistended with bowel sounds. No guarding or rigidity. Extremities: Normal skin color and turgor. No pedal edema Skin: No rashes, no jaundice Neurological: No focal deficits. Alert and oriented. - Labs CBC & Chem 7: 07/26/22 05:06 07/26/22 05:06 Labs: Abnormal Lab Results - Last 24 Hours (Table) 07/25/22 07/25/22 07/25/22 Range/Units 07:37 07:37 07:37 Hct 46.7 H (34.0-46.0) % Neutrophils # 8.7 H (1.3-7.7) k/uL Glucose 110 H (74-99) mg/dL Creatine Kinase 177 H (30-135) U/L Troponin I 0.043 H* (0.000-0.034) ng/mL Assessment and Plan (1) Nausea & vomiting Narrative/Plan: 57-year-old female who presented to the emergency department with nausea vomiting and abdominal pain with known to be severely hypokalemic on admission. She had one day of nausea and vomiting with abdominal pain. Patient actually has complaints of diffuse pain all over including headache. She was known to have low-grade temp of 100.1 and again 99.3. Patient abuses here when last used on Friday. Also has a history in the past of heroin overdose recently. Patient denies any NSAIDs or history of peptic ulcer disease. No recent EGD. Denies any hematemesis or blood or black stool. Unclear etiology likely multifactorial including electrolyte imbalance, possible gastroenteritis. Patient's hemoglobin has been stable. Will treat symptomatically at this time including diet as tolerated, IV fluids, replace electrolytes, antiemetics and Protonix for GI prophylaxis. Current Visit: Yes Status: Acute Code(s): R11.2 - NAUSEA WITH VOMITING, UNSPECIFIED SNOMED Code(s): 79927160 (2) Abdominal pain Current Visit: Yes Status: Acute Code(s): R10.9 - UNSPECIFIED ABDOMINAL PAIN SNOMED Code(s): 82165886 (3) Heroin abuse Current Visit: Yes Status: Acute Code(s): F11.10 - OPIOID ABUSE, UNCOMPLICATED SNOMED Code(s): 3697002 (4) Hypocalcemia Current Visit: Yes Status: Acute Code(s): E83.51 - HYPOCALCEMIA SNOMED Code(s): 1097419 (5) Hypokalemia Current Visit: Yes Status: Acute Code(s): E87.6 - HYPOKALEMIA SNOMED Code(s): 45942888 Plan: 1. Continue symptomatic and supportive care 2. Diet as tolerated 3. Antiemetics as needed and promethazine added 4. Recommend heroin/drug use abstinence 5. Protonix 40 mg twice a day 6. No plans on EGD or colonoscopy at this time. Patient can follow-up as an outpatient if she continues to have symptoms Thank you for this consultation, we will sign off at this time as there will be no further GI coverage through the weekend and next week. If patient continues to have abdominal pain can consider general surgery consult. Dr. Karen Camacho I agree with the dictator's note, documented as a scribe by Vita Raphael.
--- NOTE | 2022-07-26 11:07 | CA ---
Transthoracic Echo Report Name: Tabitha Mae Age: 57 Gender: F : 1965 Exam Date: 07/26/2022 09:44 Exam Location: [facility] Ht (in): 65 Wt (lb): 170 Ordering Physician: Radha Ash Attending/Referring Phys: Natural Resource Specialist Cindy Guzman, KIMBERLY Procedure CPT: Indications: elevated trop, Cardiac Hx: Technical Quality: Contrast 1: Total Dose (mL): Contrast 2: Total Dose (mL): MEASUREMENTS (Male / Female) Normal Values FINDINGS Left Ventricle Left ventricular ejection fraction is estimated at 65 %. Left ventricular cavity size normal. Right Ventricle Normal right ventricular size and function. Right Atrium Normal right atrial size. Left Atrium Normal left atrial size. Mitral Valve Structurally normal mitral valve. Mild mitral regurgitation. Aortic Valve Trileaflet aortic valve. Tricuspid Valve Structurally normal tricuspid valve. Pulmonic Valve Pulmonic valve not well visualized. Pericardium Normal pericardium. Aorta Normal size aortic root and proximal ascending aorta. CONCLUSIONS Left ventricular size and systolic function is normal. Contractility is almost hyperdynamic. There is mild mitral and tricuspid insufficiency. No pericardial effusion. Previewed by: Dr. Jennie Pham MD (Electronically Signed) Final Date: 26 July 2022 11:07
[2022-07-26 11:21] LABS: Glucose,Whole Blood 100 mg/dL (70-110)
--- NOTE | 2022-07-26 13:31 | P.CNNES ---
History of Present Illness Consult date: 07/26/22 Requesting physician: Hua Woodward Reason for Consult: Headache History of Present Illness: Patient is a 57-year-old female came to the hospital by ambulance on 07/24/2022 for abdominal pain. When they arrived, patient was alert and oriented 4, complaining of abdominal pain, vomiting since morning. Patient's blood pressure at the scene was 189/88, which went up to 196/90, pulse rate 76 respiration 24. Vital signs on arrival blood pressure 170/89 and temperature 98.8. Patient's blood test shows hemoglobin 10.3, INR 1.5, PTT 41.4 sodium 142 potassium 1.9, renal functions are normal. Glucose was 46. Hepatic panel normal. TSH normal. UA negative. Urine drug screen positive for cocaine and opiate. Blood level was negative. Schmitz virus PCR negative, influenza screen negative. Neurology was consulted because patient started having headache. Patient states that her eyes hurting, also has a headache pointing to the bifrontal region. This has been present since she is here. She does have some sinus issues. Patient also complaining of throwing up green and black stuff, with white mucus. Patient says that she has been experiencing frontal headache about once a month which last for a couple days. She has been having these periodic headaches for last 5 years. In between these headaches, she is headache free. She has all vascular features including nausea, vomiting, light and noise sensitivity. She does admit to having hypertension but no diabetes. Patient states her brother suffers from migraines. Per EMS flow sheet and that if patient was laying on her left side in bed alert and oriented 4. Patient complaining of abdominal pain and vomiting since the morning. Blood test shows normal WBC, hemoglobin 15.5, platelets 25. Chem-20 is normal. Troponin is elevated. B12 626, folate 10.7, TFTs are normal. UA negative. Urine drug screen positive for opiates and cocaine. Chest x-ray is normal. 2-D echo revealed normal left ventricular systolic function, EF is 65%. There is mild mitral and tricuspid insufficiency. Left atrial size is normal. Patient admits to smoking half pack per day for 15 years, also uses cocaine "now and then". Drinks alcohol once in a while. Review of Systems Constitutional: Denies chills, Denies fever Eyes: bilateral pain (Eyes hurting, frontal headache), bilateral photophobia Ears: deny: decreased hearing Ears, nose, mouth and throat: Reports headache, Reports nasal congestion, Reports sinus pressure, Denies epistaxis, Denies sore throat Cardiovascular: Denies chest pain, Denies shortness of breath Respiratory: Denies cough Gastrointestinal: Denies abdominal pain, Denies diarrhea, Denies nausea, Denies vomiting Genitourinary: Denies dysuria, Denies hematuria Musculoskeletal: Denies myalgias Integumentary: Denies pruritus, Denies rash Neurological: Reports as per HPI Psychiatric: Reports anxiety, Reports depression Endocrine: Denies fatigue, Denies weight change Past Medical History Past Medical History: Hyperlipidemia, Hypertension, Osteoarthritis (OA) History of Any Multi-Drug Resistant Organisms: None Reported Past Surgical History: Breast Surgery, Section Additional Past Surgical History / Comment(s): Lump exc Lt breast Past Anesthesia/Blood Transfusion Reactions: No Reported Reaction Past Psychological History: Anxiety, Depression Additional Psychological History / Comment(s): goes to [employer] [facility] [employer] [facility] Smoking Status: Current every day smoker Past Alcohol Use History: None Reported Additional Past Alcohol Use History / Comment(s): Smokes 1 ppd, since age 13. PATIENT STATES SHE QUIT DRINKING ALCOHOL Past Drug Use History: None Reported - Past Family History Mother Family Medical History: Cancer Additional Family Medical History / Comment(s): lung cancer Medications and Allergies Home Medications Medication Instructions Recorded Confirmed Type No Known Home Medications 07/25/22 07/25/22 History Allergies Allergy/AdvReac Type Severity Reaction Status Date / Time No Known Allergies Allergy Verified 07/25/22 08:08 Physical Examination - Vital Signs Vital Signs: Vital Signs Temp Pulse Resp BP Pulse Ox 07/26/22 08:00 97.8 F 55 L 170/80 99 07/26/22 02:00 97.9 F 59 L 18 173/81 99 07/25/22 19:27 98.6 F 59 L 17 167/79 99 07/25/22 13:52 99.9 F H 70 17 165/87 100 Intake and Output 07/25/22 07/26/22 07/26/22 22:59 06:59 14:59 Intake Total 1380 Balance 1380 Intake: Intake, IV Titration 900 Amount Sodium Chloride 0.9% 1, 900 000 ml @ 75 mls/hr IV . [id number] [facility] Rx#:[id number] Oral 480 Other: # Voids 2 Patient is a middle aged Afro-N[place] female, in no acute distress. Patient is alert awake oriented to time place and person. Speech and language functions are normal. Patient can name and repeat very well. No aphasia or dysarthria. Attention, concentration and fund of knowledge is adequate. On cranial nerve examination, pupils are equal, round and reacting to light, visual bermudez are full on confrontation, with no neglect on double simultaneous stimulation. Extraocular muscles are intact with no nystagmus. Face is symmetric, tongue protrudes to the midline. Palatal elevation and sensation normal, hearing and shoulder shrug normal, facial sensation normal. On muscle strength testing, there is no pronator drift and the strength is normal in arms and legs distally and proximally. Deep tendon reflexes are symmetric 1+ and plantars downgoing. Sensory to touch is equal with no neglect on double simultaneous stimulation. Cerebellar function showed no ataxia for [id number] testing. No dysdiadochokinesia. No ataxia for [id number]-[id number] testing on either side. Tone and bulk of muscles normal. Gait deferred.. On general examination, there is no carotid bruit or murmur, S1-S2 audible. Chest is clear on consultation. Abdomen is soft nontender. No organomegaly, bowel sounds present. Peripheral pulses are present. No edema. Results - Laboratory Findings CBC and BMP: 07/26/22 05:06 07/26/22 05:06 Abnormal Lab Findings: Abnormal Labs 07/24/22 07/24/22 07/24/22 21:58 21:58 21:58 WBC RBC 3.49 L Hgb 10.3 L Hct 31.8 L MPV Neutrophils # Lymphocytes # 0.6 L Eosinophils # PT 15.3 H INR 1.5 H APTT 41.4 H Sodium Potassium 1.9 L* Chloride 128 H Carbon Dioxide 13 L BUN 5 L Creatinine 0.28 L Glucose 46 L* Calcium 3.8 L* AST 12 L Alkaline Phosphatase 32 L Creatine Kinase Troponin I Total Protein 3.1 L Albumin 1.5 L Albumin/Globulin Ratio Amylase <30 L Lipase 11 L Urine Protein Urine Glucose (UA) Urine Ketones Urine Blood Urine Bacteria Urine Mucus Urine Opiates Screen Urine Cocaine Screen 07/24/22 07/24/22 07/25/22 23:55 23:55 00:18 WBC RBC Hgb Hct MPV Neutrophils # Lymphocytes # Eosinophils # PT INR APTT Sodium 136 L Potassium Chloride Carbon Dioxide BUN Creatinine Glucose 129 H Calcium AST Alkaline Phosphatase Creatine Kinase Troponin I Total Protein Albumin Albumin/Globulin Ratio Amylase Lipase Urine Protein Trace H Urine Glucose (UA) 3+ H Urine Ketones 3+ H Urine Blood Moderate H Urine Bacteria Rare H Urine Mucus Rare H Urine Opiates Screen Detected H Urine Cocaine Screen Detected H 07/25/22 07/25/22 07/25/22 07:37 07:37 07:37 WBC RBC Hgb Hct 46.7 H MPV Neutrophils # 8.7 H Lymphocytes # Eosinophils # PT INR APTT Sodium Potassium Chloride Carbon Dioxide BUN Creatinine Glucose 110 H Calcium AST Alkaline Phosphatase Creatine Kinase 177 H Troponin I 0.043 H* Total Protein Albumin Albumin/Globulin Ratio Amylase Lipase Urine Protein Urine Glucose (UA) Urine Ketones Urine Blood Urine Bacteria Urine Mucus Urine Opiates Screen Urine Cocaine Screen 07/26/22 07/26/22 05:06 05:06 WBC 10.93 H RBC Hgb Hct MPV 12.5 H Neutrophils # 8.77 H Lymphocytes # Eosinophils # 0 L PT INR APTT Sodium Potassium Chloride Carbon Dioxide BUN Creatinine Glucose Calcium AST Alkaline Phosphatase Creatine Kinase Troponin I Total Protein Albumin Albumin/Globulin Ratio 1.54 L Amylase Lipase Urine Protein Urine Glucose (UA) Urine Ketones Urine Blood Urine Bacteria Urine Mucus Urine Opiates Screen Urine Cocaine Screen Assessment and Plan Assessment: * Bifrontal cephalgia, probable migraine without aura. Patient has been having these kind of vascular headaches once a month lasting for a couple days, almost monthly for several years. She has positive family history of migraines in her brother. Therefore suspect probable migraine headache. Rule out sinusitis or other secondary cause. Her blood pressure was quite high, therefore migraine may be triggered from uncontrolled blood pressure. * Hypertension * Tobacco use * Substance use with cocaine positive. Plan: * CT head, rule out sinusitis, rule out other structural abnormalities. * Fioricet as needed, as it appears more like a migraine headache. * Patient recommended to follow up with neurologist for management of migraines in the continuous an outpatient. * Patient counseled about abstinence from tobacco and substance use. * Optimize control of blood pressure, as uncontrolled blood pressure can trigger migraines. * Neurologically clear, pending CT report. Thank you for the consult. Addendum: CT head revealed no acute intracranial process. There is mild diffuse cerebral atrophy and chronic small vessel ischemic change noted. I personally reviewed CT head, agree with the findings. Visualized paranasal sinuses are clear.
--- NOTE | 2022-07-26 14:58 | CT ---
EXAMINATION TYPE: CT brain wo con DATE OF EXAM: 07/26/2022 HISTORY: Headache CT DLP: 1152.4 mGycm. Automated Exposure Control for Dose Reduction was Utilized. TECHNIQUE: CT scan of the head is performed without contrast. COMPARISON: None. FINDINGS: There is no acute intracranial hemorrhage or midline shift identified. There is mild diff use ventricular and sulcal prominence consistent with diffuse age-related cerebral atrophy. Cavum Sep terrie pellucidum is seen. There is mild low-attenuation in the periventricular white matter consistent with chronic small vessel ischemic change. The globes are intact and the visualized sinuses are ramya r. IMPRESSION: No acute intracranial hemorrhage or midline shift. There is mild diffuse cerebral atrop hy and chronic small vessel ischemic change noted.
[2022-07-26 16:51] LABS: Glucose,Whole Blood 86 mg/dL (70-110)
[2022-07-26 19:26] LABS: Glucose,Whole Blood 88 mg/dL (70-110)
--- NOTE | 2022-07-26 22:12 | P.PN ---
Subjective This is a pleasant 57 years old -[place] female with past medical history of hypertension, hyperlipidemia and osteoarthritis. Presents with abdominal pain and nausea vomiting Patient says that her symptoms started 2 days ago with generalized pain, and that she has epigastric abdominal pain about 5/10, nonradiating felt like sharp pain associated with frequent vomiting, she states about 20 times it was a green stuff with no blood in it. Today she did not vomit but she feels nausea. Last bowel movement was about 2 days ago. Also she has frontal headache radiating to both eyes about 6/10, since yesterday associated with little room spinning No weakness or numbness, no blurred vision or slurred speech but she has neck pain. Actually the patient has pain all over her body including chest and limbs and she thinks all related to the same pain. She denies any specific urinary symptoms. She has poor appetite since last 2 days. She smokes about half pack per day and she was counseled to quit and she agrees with nicotine patch. She quit drinking alcohol for about a year. She does cocaine and heroin, about 3 days ago with her friends, she does not use it regularly, she was counseled to quit and she agrees. She denies active the persistent symptoms, she denies homicidal or suicidal ideation, she denies hallucination or delusions Vitals reviewed, patient has a blood pressure 176/83, also she had low-grade fever of 100.1. CBC showing mild anemia with hemoglobin 10.3, lysis unremarkable. INR 1.5. Chest severe hypokalemia, hypoglycemia and hypocalcemia, after receiving IV fluids and replacement these are corrected and normal this morning included potassium of 4.0, glucose 129 and then 91 and calcium 9.3 TSH is normal 0.7. Urinalysis is suspicious of infection. Urine drug screen is positive for opiates, and cocaine In the emergency room she received pain medication, IV fluids and calcium and potassium and Zofran. Viruses including influenza and Covid are undetected. Chest x-ray is normal with no acute process. Radiologist 07/26/2022 Patient had severe symptoms of pain yesterday including severe headache and chest pain and abdominal pain most likely all her symptoms related to substance abuse and their effect. Neurologist. The patient for discharge with CT of the brain of negative most likely patient has migraine, other consult is recommended no further intervention and keep monitoring. Her vitals stable. This morning she had some severe abdominal pain again and even guarding however when I came after 2 hours her pain almost disappeared and her abdomen was soft. I think once her symptoms are controlled she can be considered for discharge She has 1 episode of fever of unknown origin. Blood cultures pending in the meantime she is kept and ceftriaxone however this could also be caused by her substance abuse since there is no clear signs of infection. Objective - Vital Signs Vital signs: Vital Signs Temp 97.8 F 07/26/22 08:00 Pulse 55 L 07/26/22 08:00 Resp 18 07/26/22 02:00 BP 170/80 07/26/22 08:00 Pulse Ox 99 07/26/22 08:00 FiO2 Intake & Output 07/25/22 07/26/22 07/26/22 18:59 06:59 18:59 Intake Total 1380 Balance 1380 Intake: Intake, IV Titration 900 Amount Sodium Chloride 0.9% 1, 900 000 ml @ 75 mls/hr IV . [id number] [facility] Rx#:[id number] Oral 480 Other: # Voids 1 2 - Exam GENERAL: The patient is alert and oriented x3, not in any acute distress. Well developed, well nourished. HEENT: Pupils are round and equally reacting to light. EOMI. No scleral icterus. No conjunctival pallor. Normocephalic, atraumatic. No pharyngeal erythema. No thyromegaly. CARDIOVASCULAR: S1 and S2 present. No murmurs, rubs, or gallops. PULMONARY: Chest is clear to auscultation, no wheezing or crackles. ABDOMEN: Soft, nontender, nondistended, normoactive bowel sounds. No palpable organomegaly. MUSCULOSKELETAL: No joint swelling or deformity. EXTREMITIES: No cyanosis, clubbing, or pedal edema. NEUROLOGICAL: Gross neurological examination did not reveal any focal deficits. SKIN: No rashes. no petechiae. - Labs CBC & Chem 7: 07/26/22 05:06 07/26/22 05:06 Labs: Abnormal Lab Results - Last 24 Hours (Table) 07/26/22 07/26/22 Range/Units 05:06 05:06 WBC 10.93 H (4.50-10.00) X 10*3/uL MPV 12.5 H (9.5-12.2) fL Neutrophils # 8.77 H (1.80-7.70) X 10*3/uL Eosinophils # 0 L (0.04-0.35) X 10*3/uL Albumin/Globulin Ratio 1.54 L (1.60-3.17) g/dL Microbiology - Last 24 Hours (Table) 07/25/22 07:37 Blood Culture - Preliminary Blood No Growth after 24 hours Assessment and Plan Assessment: epigastric abdominal pain with vomiting, most likely related to so signs abuse and withdrawal Significant headache with some mild vertigo , mostly related to migraine headache Fever of unknown origin , one episode and subsided. Follow-up blood culture Substance abuse with opiates and cocaine. Patient is counseled chest pain with mildly elevated troponin, evaluated by marketing team lead Nicotine dependence, she decided to quit on her own Hypertension Hyperlipidemia History of osteoarthritis Plan: Continue with symptomatic treatment Follow-up blood culture Pain management Several consultants on the case and the neurologist, GI and marketing team lead and their input is appreciated Patient is counseled to quit substances including smoking and heroin and cocaine and she agrees Labs and medication were reviewed.. Continue same treatment. Continue with symptomatic treatment. Resume home medication. Monitor labs and vitals. DVT and GI prophylaxis. Further recommendations as per clinical course of the patient DVT prophylaxis: Subcutaneous heparin GI Prophylaxis: Ppi PT/OT: Pending Prognosis is guarded Patient may be considered for discharge once her symptoms are controlled
[2022-07-27] MEDS: SODIUM CHLORIDE 0.9% 1,000 ML IV SCH (04:33)
[2022-07-27 06:14] LABS: Glucose,Whole Blood 114 mg/dL (70-110)
[2022-07-27] MEDS: HYDROcodone/APAP 5-325MG 1 EACH TAB PO PRN (06:27)
[2022-07-27] MEDS: PANTOPRAZOLE 40 MG/10 ML VIAL IVP SCH (08:45)
[2022-07-27] MEDS: amLODIPine 5 MG TAB PO SCH (10:21)
[2022-07-27] MEDS: HEPARIN SODIUM,PORCINE/PF 5,000 UNIT/0.5 ML SYRINGE SQ SCH (10:21)
[2022-07-27] MEDS ORDERED: BUTALB/APAP/CAFF 50-325-40MG TAB PO PRN (10:54)
[2022-07-27 11:16] LABS: Basophils # (A) 0.04 X 10*3/uL (0.00-0.10); Basophils % (A) 0.4 %; Eosinophils # (A) 0.01 X 10*3/uL (0.04-0.35); Eosinophils % (A) 0.1 %; HCT 46.8 % (37.2-46.3); HGB 15.5 g/dL (12.0-15.0); Immature Grans, Automated 0.3 %; Lymphocytes # (A) 1.88 X 10*3/uL (0.90-5.00); Lymphocytes % (A) 17.7 %; MCH 29.5 pg (27.0-32.0); MCHC 33.1 g/dL (32.0-37.0); MCV 89.1 fL (80.0-97.0); Mean Platelet Volume 12.4 fL (9.5-12.2); Monocytes # (A) 0.75 X 10*3/uL (0.20-1.00); NRBC Per 100 WBC 0 /100 WBCS (0.0-0.0); Neutrophils # (A) 7.93 X 10*3/uL (1.80-7.70); Neutrophils % (A) 74.5 %; Platelet Count 252 X 10*3/uL (140-440); RBC 5.25 X 10*6/uL (4.10-5.20); RDW 12.8 % (11.5-14.5); WBC 10.64 X 10*3/uL (4.50-10.00)
[2022-07-27 11:37] LABS: Glucose,Whole Blood 93 mg/dL (70-110)
--- NOTE | 2022-07-27 12:59 | P.DS ---
Providers Date of admission: 07/25/22 00:02 Expected date of discharge: 07/27/22 Attending physician: Hugo Arcos Consults: 07/25/22 09:40 Consult Physician Urgent Consulting Provider: Aleshia Camacho Consult Reason/Comments: epigastric pain and vomiting Do you want consulting provider notified?: Yes 07/25/22 09:41 Consult Physician Urgent Consulting Provider: Rick Garcia Consult Reason/Comments: headache Do you want consulting provider notified?: Yes 07/25/22 12:27 Consult Physician Urgent Consulting Provider: Maryann Nichols Consult Reason/Comments: elevated troponin, and chest pain Do you want consulting provider notified?: Yes Primary care physician: Stated None Hospital Course: Discharge diagnoses; epigastric abdominal pain with vomiting, resolved Significant headache with some mild vertigo , mostly related to migraine headache Fever of unknown origin , resolved Substance abuse with opiates and cocaine. Patient is counseled chest pain with mildly elevated troponin, evaluated by wood heel flap rubber, cleared by cardiology Nicotine dependence, she decided to quit on her own Hypertension Hyperlipidemia History of osteoarthritis Hospital course; This is a pleasant 57 years old -[place] female with past medical history of hypertension, hyperlipidemia and osteoarthritis. Presents with abdominal pain and nausea vomiting Patient says that her symptoms started 2 days ago with generalized pain, and that she has epigastric abdominal pain about 5/10, nonradiating felt like sharp pain associated with frequent vomiting, she states about 20 times it was a green stuff with no blood in it. Today she did not vomit but she feels nausea. Last bowel movement was about 2 days ago. Also she has frontal headache radiating to both eyes about 6/10, since yesterday associated with little room spinning No weakness or numbness, no blurred vision or slurred speech but she has neck pain. Actually the patient has pain all over her body including chest and limbs and she thinks all related to the same pain. She denies any specific urinary symptoms. She has poor appetite since last 2 days. She smokes about half pack per day and she was counseled to quit and she agrees with nicotine patch. She quit drinking alcohol for about a year. She does cocaine and heroin, about 3 days ago with her friends, she does not use it regularly, she was counseled to quit and she agrees. She denies active the persistent symptoms, she denies homicidal or suicidal ideation, she denies hallucination or delusions Vitals reviewed, patient has a blood pressure 176/83, also she had low-grade fever of 100.1. CBC showing mild anemia with hemoglobin 10.3, lysis unremarkable. INR 1.5. Chest severe hypokalemia, hypoglycemia and hypocalcemia, after receiving IV fluids and replacement these are corrected and normal this morning included potassium of 4.0, glucose 129 and then 91 and calcium 9.3 TSH is normal 0.7. Urinalysis is suspicious of infection. Urine drug screen is positive for opiates, and cocaine In the emergency room she received pain medication, IV fluids and calcium and potassium and Zofran. Viruses including influenza and Covid are undetected. Chest x-ray is normal with no acute process. Radiologist 07/26/2022 Patient had severe symptoms of pain yesterday including severe headache and [address] st pain and abdominal pain most likely all her symptoms related to substance abuse and their effect. Neurologist. The patient for discharge with CT of the brain of negative most likely patient has migraine, other consult is recommended no further intervention and keep monitoring. Her vitals stable. This morning she had some severe abdominal pain again and even guarding however when I came after 2 hours her pain almost disappeared and her abdomen was soft. I think once her symptoms are controlled she can be considered for discharge She has 1 episode of fever of unknown origin. Blood cultures pending in the meantime she is kept and ceftriaxone however this could also be caused by her substance abuse since there is no clear signs of infection. 07/27. Patient seen and examined. Patient keen to go home. All lab work reviewed. Patient discharged in stable condition PHYSICAL EXAMINATION: GENERAL: The patient is alert and oriented x3, not in any acute distress. Well developed, well nourished. HEENT: Pupils are round and equally reacting to light. EOMI. No scleral icterus. No conjunctival pallor. Normocephalic, atraumatic. No pharyngeal erythema. No thyromegaly. CARDIOVASCULAR: S1 and S2 present. No murmurs, rubs, or gallops. PULMONARY: Chest is clear to auscultation, no wheezing or crackles. ABDOMEN: Soft, nontender, nondistended, normoactive bowel sounds. No palpable organomegaly. MUSCULOSKELETAL: No joint swelling or deformity. EXTREMITIES: No cyanosis, clubbing, or pedal edema. NEUROLOGICAL: Gross neurological examination did not reveal any focal deficits. SKIN: No rashes. Patient Condition at Discharge: Serious Plan - Discharge Summary Discharge Rx Participant: No New Discharge Prescriptions: New amLODIPine [Norvasc] 5 mg PO BID #60 tab Pantoprazole [Protonix] 40 mg PO DAILY #30 tab Discharge Medication List Pantoprazole [Protonix] 40 mg PO DAILY #30 tab 07/27/22 [Rx] amLODIPine [Norvasc] 5 mg PO BID #60 tab 07/27/22 [Rx] Follow up Appointment(s)/Referral(s): Clhoe Ureña FNPBC [REFERRING] - 1-2 Days
[2022-07-27 14:18] VITALS: BP 143/86; PULSE 77; RESP 18; TEMP 98.8
== END 2022-07-27 15:02 | disposition home or self-care (01) | DRG 897 ==
LOC: EC 20:01 → 3SCARD 07-25 00:02 → 4SSUR 07-25 00:44
PROVIDERS: ADMIT Hospitalist; ATTEND Hospitalist
DX: F14.19 Cocaine abuse with unspecified cocaine-induced disorder (principal); E83.51 Hypocalcemia; F11.188 Opioid abuse with other opioid-induced disorder; F10.20 Alcohol dependence, uncomplicated; E88.09 Other disorders of plasma-protein metabolism, not elsewhere classified; Z20.822 Contact with and (suspected) exposure to COVID-19; Z28.310 Unvaccinated for COVID-19; R50.9 Fever, unspecified; R10.13 Epigastric pain; G43.009 Migraine without aura, not intractable, without status migrainosus; R11.2 Nausea with vomiting, unspecified; R07.9 Chest pain, unspecified; I08.1 Rheumatic disorders of both mitral and tricuspid valves; I10 Essential (primary) hypertension; E16.2 Hypoglycemia, unspecified; E87.6 Hypokalemia; F41.9 Anxiety disorder, unspecified; F32.A Depression, unspecified; E78.5 Hyperlipidemia, unspecified; R77.8 Other specified abnormalities of plasma proteins; M19.90 Unspecified osteoarthritis, unspecified site; M54.2 Cervicalgia; N20.0 Calculus of kidney; F17.210 Nicotine dependence, cigarettes, uncomplicated; Z71.6 Tobacco abuse counseling; Z71.51 Drug abuse counseling and surveillance of drug abuser
CPT/HCPCS: 36415; 70450; 71046; 74018; 74176; 80048; 80053; 80306; 80320; 81001; 82150; 82330; 82550; 82607; 82746; 82803; 83605; 83690; 83735; 83970; 84100; 84145; 84443; 84484; 85025; 85610; 85730; 87040; 87502; 87635; 93005; 93308; 96361; 96365; 96366; 96375; 99285

== ENCOUNTER → 2022-12-19 | Outpatient (CLI) | payer MEDICARE, OTHER ==
--- NOTE | 2022-12-19 08:05 | CTL ---
EXAMINATION TYPE: CT Low Dose Lung DATE OF EXAM ORDERED: 12/19/2022 COMPARISON: None HISTORY: . Low Dose CT Lung Screening CT DLP: 71.[address] CTDI: 2.2 mGy IV CONTRAST USED: None. SCREENING VISIT: First visit COMPARISON: None. TECHNIQUE: Low dose computed tomography scan was performed through the chest at 1 millimeter thick se ctions and reconstructed images in the coronal plane at [address] DIAGNOSTIC QUALITY: Satisfactory FINDINGS: LUNG NODULES: 5 mm solid nodule left upper lobe image 29 sequence 3. Subpleural nodular density 2 mm right lower lobe image 132 sequence 3. Subpleural nodule right lower lobe measuring 3 mm image 174 sequence 3. No additional nodules are evident. LUNGS: COPD: Severity: Mild Fibrosis: Severity:None Lymph nodes: None Other findings: None RIGHT PLEURAL SPACE: Effusion: None Calcification: None Thickening: None Pneumothorax: None LEFT PLEURAL SPACE: Effusion: None Calcification: None Thickening: None Pneumothorax: None HEART: Heart Size: Mildly enlarged Coronary calcification: Mild Pericardial effusion: None OTHER FINDINGS: Upper abdomen: Small hiatal hernia. Bony thorax: Degenerative changes Supraclavicular region: No significant abnormalityOther: No significant abnormalityI IMPRESSION: There are a couple of the scattered pulmonary nodules measuring up to [address] CHEST RECOMMENDATION: Follow-up screening in one year CT LUNG RAD: LUNG RAD CATEGORY category 2 benign appearance and/or behavior.
== END | disposition home or self-care (01) ==
LOC: RADCTMAIN 06:46
PROVIDERS: ATTEND Family Medicine
DX: Z12.2 Encounter for screening for malignant neoplasm of respiratory organs (principal); R91.8 Other nonspecific abnormal finding of lung field; F17.210 Nicotine dependence, cigarettes, uncomplicated
CPT/HCPCS: 71271

== ENCOUNTER → 2023-09-22 | Outpatient (CLI) | payer MEDICARE, OTHER ==
--- NOTE | 2023-09-23 08:23 | MM ---
Reason for Exam: Screening (asymptomatic). Last mammogram was performed 1 year(s) and 8 month(s) ago. Patient History: Menarche at age 15. First Full-Term at age 16. Postmenopausal. Excisional Biopsy on the Left side. Maternal cousin had breast cancer, age 55. Sister had breast cancer, age 50. Risk Values: Pilar 5 year model risk: 1.7%. NCI Lifetime model risk: 8.9%. Prior Study Comparison: 06/12/2016 Bilateral Screening Mammogram, [facility]. 06/20/2020 Bilateral Screening Mammogram, [facility]. 01/18/2022 Bilateral MG 3D screening mammo w/cad, [facility]. Tissue Density: The breast tissue is heterogeneously dense. This may lower the sensitivity of mammography. Findings: Analyzed By CAD. There is no suspicious group of microcalcifications or new suspicious mass in either breast. Overall Assessment: Negative, BI-RAD 1 Management: Screening Mammogram of both breasts in 1 year. . Patient should continue monthly self-breast exams. A clinical breast exam by your physician is recommended on an annual basis. This exam should not preclude additional follow-up of suspicious palpable abnormalities. Note on Pilar scores and lifetime risk: 1. A Pilar score greater than 3% is considered moderate risk. If this is the case, consider specialist referral to assess eligibility for a risk reducing agent. 2. If overall lifetime risk for the development of breast cancer is 20% or higher, the patient may qualify for future screening with alternating mammogram and breast MRI. Electronically signed and approved by: Sammy Zhu M.D. Radiologis
== END | disposition home or self-care (01) ==
LOC: RADMAMWWP 14:09
PROVIDERS: ATTEND Family Medicine
DX: Z12.31 Encounter for screening mammogram for malignant neoplasm of breast (principal); Z78.0 Asymptomatic menopausal state; Z80.3 Family history of malignant neoplasm of breast
CPT/HCPCS: 77063; 77067

== ENCOUNTER → 2023-12-22 | Outpatient (CLI) | payer MEDICARE, OTHER ==
--- NOTE | 2023-12-22 13:32 | CTL ---
EXAMINATION TYPE: CT Low Dose Lung DATE OF EXAM ORDERED: 12/22/2023 HISTORY: . Lung cancer screening CT DLP: 73.[address] CTDI: 2.1 mGy Automated exposure control for dose reduction was used. SCREENING VISIT: Subsequent COMPARISON: 12/19/2022 TECHNIQUE: Low dose computed tomography scan was performed through the chest at 1 mm thick sections a nd reconstructed images in the coronal plane at [address] DIAGNOSTIC QUALITY: Satisfactory FINDINGS: LUNG NODULES: Present, detailed below: 1. There is a 1 mm nonspecific density within the anterior lateral right apex. Series 4 image 35. Pre sent previously. 2. There is a 2 mm density within the periphery of the right lung. Series 4 image 142. Present previo usly. 3. There is some thickening adjacent to the major fissure at both the right and left lung bases. This is diminished on the left and similar on the right. Correlate for atelectasis. 4. There is a stable pleural-based density measuring 0.5 cm, series 4 image 217 along the right media stinal border. LUNGS: COPD: Severity: None Fibrosis: Severity: None Lymph nodes: Shotty lymphadenopathy is within the mediastinum. No enlarged mediastinal or hilar lymph nodes are evident Other findings: None RIGHT PLEURAL SPACE: Effusion: Not Calcification: None Thickening: None Pneumothorax: None LEFT PLEURAL SPACE: Effusion: None Calcification: None Thickening: None Pneumothorax: None HEART: Heart Size: Normal Coronary calcification: None Pericardial effusion: None OTHER FINDINGS: Upper abdomen: Nonobstructing renal stone is in the left kidney Bony thorax: Unremarkable Supraclavicular region: Normal Other: Ascending thoracic aorta at the level the main pulmonary artery measures 3.3 cm. The main pul monary artery at the bifurcation measures 2.7 cm. IMPRESSION: 1. Stable findings. No suspicious changes to suggest primary or metastatic neoplasm. FOLLOW UP CT CHEST RECOMMENDATION: Low-dose CT chest one year CT LUNG RAD: Lung-Rad 2 Benign Appearance or Behavior
== END | disposition home or self-care (01) ==
LOC: RADCTMAIN 10:40
PROVIDERS: ATTEND Family Medicine
DX: Z12.2 Encounter for screening for malignant neoplasm of respiratory organs (principal); F17.210 Nicotine dependence, cigarettes, uncomplicated; R91.1 Solitary pulmonary nodule
CPT/HCPCS: 71271

== ENCOUNTER → 2024-10-28 | Outpatient (CLI) | payer MEDICARE, OTHER ==
--- NOTE | 2024-10-29 08:01 | MM ---
Reason for Exam: Screening (asymptomatic). Last mammogram was performed 1 year(s) and 2 month(s) ago. Patient History: Menarche at age 15. First Full-Term at age 16. Postmenopausal. Excisional Biopsy on the Left side. Maternal cousin had breast cancer, age 55. Sister had breast cancer, age 50. Risk Values: Pilar 5 year model risk: 1.8%. NCI Lifetime model risk: 8.6%. Prior Study Comparison: 06/20/2020 Bilateral Screening Mammogram, [facility]. 01/18/2022 Bilateral MG 3D screening mammo w/cad, [facility]. 09/22/2023 Bilateral MG 3D screening mammo w/cad, [facility]. Tissue Density: The breasts are heterogeneously dense, which may obscure small masses. Findings: Analyzed By CAD. Chronic nodularity on the left. There is no suspicious group of microcalcifications or new suspicious mass in either breast. Overall Assessment: Benign, BI-RAD 2 Management: Screening Mammogram of both breasts in 1 year. Patient should continue monthly self-breast exams. A clinical breast exam by your physician is recommended on an annual basis. This exam should not preclude additional follow-up of suspicious palpable abnormalities. Note on Pilar scores and lifetime risk: 1. A Iplar score greater than 3% is considered moderate risk. If this is the case, consider specialist referral to assess eligibility for a risk reducing agent. 2. If overall lifetime risk for the development of breast cancer is 20% or higher, the patient may qualify for future screening with alternating mammogram and breast MRI. [facility], , 10/29/2024 7:57 AM. Electronically signed and approved by: Linda Hernandez M.D. Radiologist
== END | disposition home or self-care (01) ==
LOC: RADMAMWWP 16:06
PROVIDERS: ATTEND Family Medicine
DX: Z12.31 Encounter for screening mammogram for malignant neoplasm of breast (principal); R92.333 Mammographic heterogeneous density, bilateral breasts; Z78.0 Asymptomatic menopausal state; Z80.3 Family history of malignant neoplasm of breast
CPT/HCPCS: 77063; 77067

== ENCOUNTER → 2025-01-13 | Outpatient (CLI) | payer MEDICARE, OTHER ==
--- NOTE | 2025-01-13 15:58 | CTL ---
EXAMINATION TYPE: CT Low Dose Lung DATE OF EXAM ORDERED: 01/13/2025 COMPARISON: 12/22/2023 CLINICAL INDICATION: Female, 59 years old with history of Z12.2 ENCNTR SCREEN FOR MALIGNANT NEOPLASM OF RESP; PHH, HISTORY OF SMOKING, Lung cancer screening, History of Smoking/tobacco use. TECHNIQUE: Low dose computed tomography scan was performed through the chest at 1 mm thick sections a nd reconstructed images in multiple planes at 1 mm and [address] DLP: [address] CTDI: 1.57 mGy Automated exposure control for dose reduction was used. CT DIAGNOSTIC QUALITY: Satisfactory FINDINGS: EXAMINATION TYPE: CT Low Dose Lung DATE OF EXAM ORDERED: 01/13/2025 CLINICAL INDICATION: Female, 59 years old with history of Z12.2 ENCNTR SCREEN FOR MALIGNANT NEOPLASM OF RESP, history of tobacco use, Lung cancer screening CT DLP: [address] CTDI: 1.57 mGy Automated exposure control for dose reduction was used. Comparison: None TECHNIQUE: Low dose computed tomography scan was performed through the chest at 1 mm thick sections a nd reconstructed images in multiple planes at 1 mm and [address] DIAGNOSTIC QUALITY: Satisfactory FINDINGS: There is a stable 5.8 mm nodule in the left upper. There are a few small stable groundglass opacities in the right middle lobe. There is no nodes or suspicious lung mass or nodule. The lungs are clear and there is no abnormal airspace consolidation or interstitial density. There is no mediastinal, hilar or axillary adenopathy. There is no pleural effusion, pleural thickening or pneumothorax. No focal osseous lesions are seen. Limited scans the upper abdomen reveals no gross abnormality. There is a stable 9.6 cm peripherally calcified mass spinal canal at the T11/T12 level. It is stable when compared to the prior CT thorax dated 12/19/2049 and therefore is likely benign. Dedicated CT of the thoracic spine or MRI of the thoracic spine is recommended if clinically indicated. IMPRESSION: 1. Lung rads Category 2 benign. Continue routine screening at yearly intervals. 2. No acute cardiopulmonary disease. 3. Stable partially calcified mass in the spinal canal at the T11/T12 level as described above. See vicki quintanilla [facility], , 01/13/2025 3:55 PM
== END | disposition home or self-care (01) ==
LOC: RADCTMAIN 15:18
PROVIDERS: ATTEND Family Medicine
DX: Z12.2 Encounter for screening for malignant neoplasm of respiratory organs (principal); F17.210 Nicotine dependence, cigarettes, uncomplicated
CPT/HCPCS: 71271